=== PATIENT | female | born 1935 | race Caucasian/White ===

== ENCOUNTER 2016-11-25 12:28 | Outpatient (CLI) | payer MEDICARE, OTHER ==
--- NOTE | 2016-11-25 16:21 | MRI Report ---
MRI LUMBAR SPINE WITHOUT CONTRAST EXAM DATE: 11/25/2016. INDICATION: 81-year-old female with subtle weakness right lower extremity. Concern for neurogenic cla udication. Please assess. COMPARISON: None. TECHNIQUE: 1. T2 coronal. 2. Sagittal STIR, T1 and T2. 3. Axial T1 and T2. FINDINGS: Radiographs (08/26/2006) have been reviewed, confirming the presence of 5 mgs-rcm-imwpxqf, lumbar-typ e vertebrae. There is a levoconvex scoliosis with apex at the L3-L4 disk level. With the patient lying supine, the Ludwig angle measures about 18 degrees. Also demonstrated is mild left lateral listhesis of L4 on L5. In the sagittal plane there is some straightening of the lumbar alignment with very minimal lordosis. In addition, there is minimal stepwise retrolisthesis of L1 on L2, L2 on L3, L3 on L4, and L4 on L5. Alignment is otherwise unremarkable. There is concavity in superior endplate of L4 on the right, consistent with prominent, Schmorl node t ype deformity. This results in mild loss of height centrally, on the right at L4. There is mild conca vity of the superior endplate of L1, most prominent paracentrally to the right, consistent with the s equela of old healed superior endplate compression type fracture. The vertebral body heights are othe rwise relatively preserved. No evidence of recent (acute or subacute) lumbar spine compression fractu re. Degenerative changes are demonstrated in the disks at all levels from L2-L3 to L5-S1. There is minima l disk space narrowing at L2-L3. Lzoi-nx-mewcgipr disk space narrowing is seen at L3-L4, most promine nt paracentrally on the right. There is moderate to severe disk space narrowing at L4-L5, most promin ent paracentrally to the right. The disk space heights are otherwise relatively preserved. Minor, type I reactive marrow changes are identified in the vertebral endplates at L3-L4 and L4-L5. A few intraosseous hemangiomata are demonstrated. The marrow signal intensity is otherwise unremarkabl e. The conus terminates in an appropriate fashion above the L1-L2 disk level. There is no abnormal thick ening or lipomatous change of the filum. Axial Images: L2-L3: Circumferential disk bulge with small, superiorly directed, left posterolateral extrusion and a broad-based left intra-/extraforaminal extrusion. Degenerative facet arthrosis with minimal bony hy pertrophy. Mild to moderate redundancy of ligamenta flava. Circumferential mass effect on the thecal sac without significant-appearing spinal stenosis. Mild foraminal stenoses. L3-L4: Circumferential disk bulge. Broad-based, right posterolateral and intra-/extraforaminal extrus ion. Broad-based left intra-/extraforaminal extrusion. Degenerative facet arthrosis with at least mil d bony hypertrophy. Moderate redundancy of ligamenta flava. Circumferential thecal sac compression. T he subarticular zones are narrowed, right greater than left. However, no thu impingement of tatiana ing right L4 nerve root is demonstrated. No significant central zone spinal stenosis. Moderate right and mild left foraminal stenoses. The L3 nerve roots appear to exit noncompressed. L4-L5: Circumferential disk bulge. Broad-based left intra-/extraforaminal protrusion. Broad-based rig ht intra-/extraforaminal extrusion. Degenerative facet arthrosis with mild left and mild to moderate right facet hypertrophy. Moderate redundancy of ligamenta flava. The subarticular zones are narrowed bilaterally. No impingement of either traversing L5 nerve root is demonstrated. No significant centra l zone spinal stenosis. There is relatively severe right-sided foraminal stenosis. Perineural fat maryan rounding exiting right L4 nerve root is effaced. Mild left foraminal stenosis. L5-S1: Minor disk bulge. Broad-based left intra-/extraforaminal extrusion. Degenerative facet arthros is without significant bony hypertrophy. No spinal stenosis or right foraminal stenosis. There is rel atively severe left-sided foraminal narrowing. Perineural fat surrounding left L5 nerve root is effac ed in the medial aspect of the neural foramen. There may be mild compression of the nerve root in the foramen. There is mild fatty atrophy in the posterior paraspinal musculature. IMPRESSION: 1. Levoconvex lumbar scoliosis with multilevel degenerative disk and facet change as documented in de tail above. 2. There are significant-appearing foraminal stenoses on the right at L4-L5 and on the left at L5-S1. There certainly could be compromise of exiting right L4 and/or left L5 nerve roots. Recommend clinic al correlation for possible right L4 and/or left L5 radiculopathy. 3. No other high-grade stenosis is identified and no other potential neural impingement is demonstrat ed. Referring Provider Line: [phone] SITE ID: [id number]
== END 2016-11-25 12:29 | disposition home or self-care (01) ==
LOC: DI 12:28
PROVIDERS: ATTEND Internal Medicine
DX: M51.36 Other intervertebral disc degeneration, lumbar region (principal); M51.37 Other intervertebral disc degeneration, lumbosacral region; M41.86 Other forms of scoliosis, lumbar region; M51.26 Other intervertebral disc displacement, lumbar region
CPT/HCPCS: 72148

== ENCOUNTER 2017-09-07 17:58 | Outpatient (CLI) | payer MEDICARE, OTHER | END 2017-09-07 17:59 | disposition critical access hospital (66) | LOC: EMS 17:58 | PROVIDERS: ATTEND Surgery | DX: Z03.89 Encounter for observation for other suspected diseases and conditions ruled out (principal) | CPT/HCPCS: A0425; A0429 ==

== ENCOUNTER 2017-09-07 18:10 | Emergency (ER) | payer MEDICARE, OTHER ==
--- NOTE | 2017-09-07 19:23 | ED Physician Documentation ---
PD HPI SYNCOPE - Stated complaint Stated Complaint: GLF - Chief complaint Chief Complaint: Neuro - History obtained from History obtained from: Patient, EMS - History of Present Illness Witnessed: Unwitnessed Timing - onset: Today Duration: Minutes Preceding symptoms: Light headed, Generalized weakness (she got up from sitting and felt lightheaded and weak legs. Slumped down without fall per se. Called EMS as could not get up herslef. They stood her up and she felt lightheaded initially, so they brought her here for evaluation. Feeling okay enroute.). No : Headache, Vision changes, Chest pain, Abdominal pain Contributing factors: Decreased PO intake, Just stood up. No: Recent med change , Noxious stimulae Similar symptoms before: Has not had sx before Recently seen: Not recently seen Review of Systems Constitutional: denies: Fever, Chills Nose: denies: Rhinorrhea / runny nose, Congestion Throat: denies: Sore throat Cardiac: denies: Chest pain / pressure, Palpitations Respiratory: denies: Dyspnea, Cough GI: denies: Abdominal Pain, Nausea, Vomiting, Diarrhea : denies: Dysuria, Frequency Skin: denies: Rash, Lesions Neurologic: reports: Generalized weakness, Near syncope. 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 HEENT: Chronic hearing loss Psych: None Musculoskeletal: Osteoarthritis, Osteoporosis Derm: None - Past Surgical History Past Surgical History: Yes General: Cholecystectomy, Colonoscopy /RADIO REPAIR TEACHER: Hysterectomy HEENT: Tonsil/Adenoidectomy - Present Medications Home Medications: Ambulatory Orders Medication Instructions Recorded Confirmed Aspirin [Children's Aspirin] 81 mg PO DAILY 03/09/13 11/22/15 Levothyroxine Sodium [Synthroid] 75 mcg PO DAILY 03/09/13 11/22/15 Colestipol HCl [Colestid] 2 gm PO BID 11/22/15 11/26/15 Acetaminophen 500 mg PO QPM 11/26/15 11/26/15 Acetaminophen [Tylenol] 325 mg PO DAILY 11/26/15 11/26/15 Calcium Carbonate 1,250 mg PO DAILY 11/26/15 11/26/15 Cholecalciferol (Vitamin D3) 1,200 units PO DAILY 11/26/15 11/26/15 [D--Ujliana] - Allergies Allergies/Adverse Reactions: Allergies Allergy/AdvReac Type Severity Reaction Status Date / Time NSAIDS (Non-Steroidal Allergy Mild Anxiety Verified 09/07/17 19:12 Anti-Inflamma ranitidine HCl * Allergy Mild unknown Verified 09/07/17 19:12 [From Zantac] sertraline HCl * Allergy Mild unknown Verified 09/07/17 19:12 [From Zoloft] oxycodone Allergy Unknown Verified 09/07/17 19:12 Bngchxn-Wxv-Fsk Reductase AdvReac Mild Dizziness Verified 09/07/17 19:12 Inhibitor alendronate sodium AdvReac Dizziness Verified 09/07/17 19:12 [From Fosamax] - Social History Does the pt smoke?: No Smoking Status: Never smoker Does the pt drink ETOH?: Yes Does the pt have substance abuse?: No - Immunizations Immunizations are current?: Yes - POLST Patient has POLST: No PD ED PE NORMAL - Vitals Vital signs reviewed: Yes - General General: Alert and oriented X 3, No acute distress, Well developed/nourished - HEENT HEENT: Pharynx benign - Neck Neck: Supple, no meningeal sign, No adenopathy - Cardiac Cardiac: RRR, No murmur - Respiratory Respiratory: Clear bilaterally - Abdomen Abdomen: Normal bowel sounds, Soft, Non tender, Non distended - Back Back: No CVA TTP - Derm Derm: Normal color, Warm and dry, No rash - Extremities Extremities: No deformity, No tenderness to palpate, No edema, No calf tenderness / cord - Neuro Neuro: Alert and oriented X 3, No motor deficit, Normal speech Eye Opening: Spontaneous Motor: Obeys Commands Verbal: Oriented GCS Score: 15 Results - Vitals Vitals: Oxygen O2 Source Room air - Labs Labs: Laboratory Tests 09/07/17 09/07/17 20:09 20:09 WBC 6.4 RBC 4.50 Hgb 12.3 Hct 38.6 MCV 85.8 MCH 27.4 MCHC 31.9 L RDW 14.1 Plt Count 210 MPV 9.0 Neut # 4.2 Lymph # 1.3 L [place] # 0.7 Eos # 0.1 Baso # 0.0 Absolute Nucleated RBC 0.00 Nucleated RBC % 0.0 Sodium 137 Potassium 3.8 Chloride 103 Carbon Dioxide 27 Anion Gap 7.0 BUN 26 H Creatinine 1.0 Estimated GFR (MDRD) 53 L Glucose 104 H Calcium 8.9 Magnesium 2.3 Total Bilirubin 0.4 AST 19 ALT 14 Alkaline Phosphatase 52 Total Protein 7.2 Albumin 4.1 Globulin 3.1 Albumin/Globulin Ratio 1.3 Lipase 36 PD MEDICAL DECISION MAKING - ED course Complexity details: considered differential (normal basic labs. BP slightly elevated but I don't think the issue. No obvious infection. ), d/w patient Departure - Departure Disposition: 01 Home, Self Care Clinical Impression: General weakness Accidental fall Qualifiers: Encounter type: initial encounter Qualified Code(s): W19.XXXA - Unspecified fall, initial encounter Arm contusion Qualifiers: Encounter type: initial encounter Laterality: left Qualified Code(s): S40.022A - Contusion of left upper arm, initial encounter Condition: Stable Record reviewed to determine appropriate education?: Yes Follow-Up: Alvin Leyva MD [Primary Care Provider] - Comments: Adequate fluids. Tylenol if needed for pains. Your basic labs appear normal here. Your blood pressure has improved from what it was but is still slightly elevated. I do not think that is the main cause of your symptoms however. I do not know the cause of your feeling of leg weakness. See how it does over the next day or 2. Recheck if not improved in the next couple of days. Use your walker at home as needed to help support you. Follow-up with your primary care or return here if other symptoms develop such as cold or flu symptoms. Discharge Date/Time: 09/07/17 21:34
[2017-09-07] MEDS ORDERED: SODIUM CHLORIDE 0.9% 500 ML IV ONE (19:50)
[2017-09-07 20:14] LABS: BASOPHILS % (AUTO) 0.7 %; EOSINOPHILS # (AUTO) 0.1 10^3/uL (0.0-0.7); EOSINOPHILS % (AUTO) 1.4 %; HGB - HEMOGLOBIN 12.3 g/dL (12.0-16.0); LYMPHOCYTES # (AUTO) 1.3 10^3/uL (1.5-3.5); LYMPHOCYTES % (AUTO) 20.3 %; MEAN CORPUSCULAR HEMOGLOBIN 27.4 pg (27.0-31.0); MEAN CORPUSCULAR HGB CONC 31.9 g/dL (32.0-36.0); MEAN CORPUSCULAR VOLUME 85.8 fL (81.0-99.0); MONOCYTES # (AUTO) 0.7 10^3/uL (0.0-1.0); MONOCYTES % (AUTO) 11.6 %; NEUTROPHILS # (AUTO) 4.2 10^3/uL (1.5-6.6); PLT - PLATELET COUNT 210 10^3/uL (130-450); RED CELL DISTRIBUTION WIDTH 14.1 % (12.0-15.0); WHITE BLOOD COUNT 6.4 x10^3/uL (4.8-10.8)
[2017-09-07 20:25] LABS: ALBUMIN 4.1 g/dL (3.2-5.5); ALBUMIN/GLOBULIN RATIO 1.3 (1.0-2.2); BILIRUBIN,TOTAL 0.4 mg/dL (0.2-1.0); CALCIUM 8.9 mg/dL (8.5-10.3); MAGNESIUM 2.3 mg/dL (1.7-2.8); TOTAL PROTEIN 7.2 g/dL (6.7-8.2)
[2017-09-07 21:34] VITALS: BP 166/61
== END 2017-09-07 21:34 | disposition home or self-care (01) ==
LOC: EDUNIT# → ED 18:10
DX: R53.1 Weakness (principal); S40.022A Contusion of left upper arm, initial encounter; W18.30XA Fall on same level, unspecified, initial encounter; Z79.82 Long term (current) use of aspirin; E78.00 Pure hypercholesterolemia, unspecified; E03.9 Hypothyroidism, unspecified
CPT/HCPCS: 36415; 80053; 83690; 83735; 85025; 96360; 99283; 99284

== ENCOUNTER 2019-04-04 09:15 | Outpatient (CLI) | payer MEDICARE, OTHER ==
--- NOTE | 2019-04-04 15:39 | MRI Report ---
Reason: LOW BACK PAIN AT MULTIPLE SITES Procedure Date: 04/04/2019 Accession Number: [id number] / [id number] Procedure: MRI - Lumbar Spine W/O CPT Code: FULL RESULT: EXAM: MRI LUMBAR SPINE WITHOUT CONTRAST EXAM DATE: 04/04/2019 10:38 AM. CLINICAL HISTORY: Low back pain at multiple sites. COMPARISON: 11/25/2016 lumbar spine MRI. TECHNIQUE: Multiplanar, multisequence T1-weighted and fluid-sensitive sequences of the lumbar spine from T12 to S1 without contrast. Other: None. FINDINGS: Spinal Canal: The conus terminates at L1-L2. The conus medullaris and cauda equina are unremarkable. Alignment: 24 degrees levoscoliosis with apex at L4, measured from the superior endplate of L3 to the inferior endplate of L5. Grade 1 retrolisthesis L4 on L5 measures 2 mm. Bone Marrow: Five ota-qtc-pyxxjea lumbar vertebral bodies are assumed. No fractures. No osseous lesions. Severe right-sided intervertebral disk height loss at L3-L4 and L4-L5 with surrounding mixed Modic type I and II endplate degenerative changes. Disk Levels/Facets: T12-L1: Unremarkable. L1-L2: Unremarkable. L2-L3: Broad-based disk bulge asymmetric to the left foraminal and extraforaminal region and mild facet arthropathy results in mild central canal stenosis and left foraminal stenosis. Unchanged. Mild intervertebral disk height loss and disk desiccation. L3-L4: A broad-based disk bulge asymmetric to the right foraminal and extraforaminal region with moderate to severe bilateral facet arthropathy results in moderate central canal and right foraminal stenosis. Right foraminal stenosis is progressed, with disk material contacting the exiting right L3 nerve root. There are small bilateral facet effusions. L4-L5: Broad-based disk osteophyte complex and moderate facet arthropathy results in unchanged moderate central canal stenosis with progressive, now severe right and mild left foraminal stenosis. Disk material appears to contact and displace the exiting right L4 nerve root. L5-S1: A left foraminal disk protrusion and moderate left facet arthropathy results in severe left foraminal stenosis, with disk material contacting and displacing the exiting left L5 nerve root, progressed from the prior exam. No right foraminal or central canal stenosis. Musculature: Normal. No edema or fatty atrophy. Other: The partially visualized retroperitoneum is unremarkable. IMPRESSION: 1. At L5-S1, there is progressive, now severe left foraminal stenosis, with disk material impinging upon the exiting left L5 nerve root. 2. At L4-L5, severe right foraminal stenosis has progressed in the interval, with disk material impinging upon the exiting right L4 nerve root. Moderate central canal stenosis is unchanged. 3. At L3-L4, there has been interval progression of moderate central canal and right foraminal stenosis, with disk material impinging upon the extraforaminal right L3 nerve root. 4. Moderate lumbar levoscoliosis with severe right-sided intervertebral disk height loss at L3-L4 and L4-L5, progressed from the prior exam. Comment: The following findings are so common in adults without low back pain that while we report their presence, they must be interpreted with caution and in the context of the clinical situation. (Reference Mariank et al, Spine 2001) Prevalence of findings in patients without low back pain: Disk degeneration (any evidence): 92% Disk desiccation/T2 signal loss: 83% Disk height loss: 56% Disk bulge: 64% Disk protrusion: 32% Annular tear/high intensity zone: 38% RADIA
== END 2019-04-04 09:16 | disposition home or self-care (01) ==
LOC: DI 09:15
PROVIDERS: ATTEND Physical Medicine & Rehabilitation
DX: M48.061 Spinal stenosis, lumbar region without neurogenic claudication (principal); M51.27 Other intervertebral disc displacement, lumbosacral region; M41.86 Other forms of scoliosis, lumbar region
CPT/HCPCS: 72148

== ENCOUNTER 2020-02-02 02:56 | Outpatient (CLI) | payer MEDICARE, OTHER | END 2020-02-02 02:57 | disposition critical access hospital (66) | LOC: EMS 02:56 | PROVIDERS: ATTEND Surgery | DX: M54.5 Low back pain (principal); M54.2 Cervicalgia; W18.39XA Other fall on same level, initial encounter; Y92.003 Bedroom of unspecified non-institutional (private) residence as the place of occurrence of the external cause | CPT/HCPCS: A0425; A0429 ==

== ENCOUNTER 2020-08-23 15:32 | Outpatient (CLI) | payer MEDICARE, OTHER ==
--- NOTE | 2020-08-23 16:55 | DEXA Report ---
PROCEDURE: Dexa Spine and/or Hip INDICATIONS: OSTEOPENIA TECHNIQUE: Dual energy x-ray absorptiometry (DXA) was performed on a [employer]. Regions measur ed are the AP Spine, femoral neck, and if needed forearm. COMPARISON: 04/09/2017. FINDINGS: Lumbar Spine: Bone Mineral Density 1.450 g/cm/cm,T score 2.3, there is interval 8.6% increase in total lumbar sp ine bone mineral density. Right Hip: Bone Mineral Density 0.847 g/cm/cm,T score -1.3, there is interval 0.4% increase in total right hip bone mineral density. Right Femoral Neck: Bone Mineral Density 0.766 g/cm/cm, T score -2.0. (T score greater or equal to -1.0: NORMAL) (T score from -1.1 to -2.4: OSTEOPENIA) (T score less than or equal to -2.5 to: OSTEOPOROSIS) Impression: Osteopenia. Patients with diagnosis of osteoporosis or osteopenia should have regular bone mineral density assess ment. For those eligible for Medicare, routine testing is allowed once every 2 years. Testing frequ ency can be increased for patients who have rapidly progressing disease or for those who are receivin g medical therapy to restore bone mass. Reviewed by: Ravi Ruelas MD on 08/23/2020 4:53 PM PST Approved by: Ravi Ruelas MD on 08/23/2020 4:53 PM PST Station ID: [id number]
== END 2020-08-23 15:33 | disposition home or self-care (01) ==
LOC: DI 15:32
PROVIDERS: ATTEND Physician Assistant
DX: M85.89 Other specified disorders of bone density and structure, multiple sites (principal)

== ENCOUNTER 2020-12-22 12:32 | Outpatient (CLI) | payer MEDICARE, OTHER | END 2020-12-22 12:33 | disposition critical access hospital (66) | LOC: EMS 12:32 | DX: R53.1 Weakness (principal) | CPT/HCPCS: A0425; A0429 ==

== ENCOUNTER 2020-12-22 12:45 | Emergency (ER) | payer MEDICARE, OTHER ==
[2020-12-22] MEDS ORDERED: DEXAMETHASONE 10 MG/ML VIAL IVP STA (13:29)
--- NOTE | 2020-12-22 13:33 | ED Physician Documentation ---
History of Present Illness - Stated complaint Stated Complaint: UNABLE TO WALK - Chief complaint Chief Complaint: Neuro - History obtained from History obtained from: Patient - History of Present Illness Timing: Today Pain level max: 5 Pain level now: 0 - Additonal information Additional information: Patient is an 85-year-old female who presents to the emergency department stating that she has had difficulty walking today. She states she feels like her feet are in blocks of cement. She states she had back pain earlier but this is since resolved. She uses a walker normally to ambulate at home. Has a history of spinal stenosis. Had a steroid injection about 3 weeks ago at L4-L5. Has not had any numbness or tingling. No loss of bowel or bladder control. No fevers. No trauma. She states that she just feels weak. 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 : 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, Nocturia HEENT: Chronic hearing loss Psych: None Musculoskeletal: Other Derm: None - Past Surgical History Past Surgical History: Yes General: Cholecystectomy, 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: Hysterectomy HEENT: Tonsil/Adenoidectomy - Present Medications Home Medications: Ambulatory Orders Medication Instructions Recorded Confirmed Levothyroxine Sodium [Synthroid] 75 mcg PO DAILY 03/09/13 12/22/20 Calcium Carbonate 1,250 mg PO DAILY 11/26/15 12/22/20 Cholecalciferol (Vitamin D3) 1,200 units PO DAILY 11/26/15 12/22/20 [D--Juliana] Lovastatin 40 mg PO DAILY 12/22/20 12/22/20 Metoprolol Tartrate [Lopressor] 25 mg PO BID 12/22/20 12/22/20 Omeprazole [PriLOSEC] 20 mg PO DAILY 12/22/20 12/22/20 cephALEXin [Keflex] 500 mg PO Q6H #20 cap 12/22/20 predniSONE [Deltasone] 40 mg PO DAILY #10 tablet 12/22/20 - Allergies Allergies/Adverse Reactions: Allergies Allergy/AdvReac Type Severity Reaction Status Date / Time NSAIDS (Non-Steroidal Allergy Mild Anxiety Verified 12/22/20 12:54 Anti-Inflamma ranitidine HCl * Allergy Mild unknown Verified 12/22/20 12:54 [From Zantac] sertraline HCl * Allergy Mild unknown Verified 12/22/20 12:54 [From Zoloft] oxycodone Allergy Unknown Verified 12/22/20 12:54 Wqimsul-Tic-Xfb Reductase AdvReac Mild Dizziness Verified 12/22/20 12:54 Inhibitor alendronate sodium AdvReac Dizziness Verified 12/22/20 12:54 [From Fosamax] - Social History Does the pt smoke?: No Smoking Status: Never smoker Does the pt drink ETOH?: Yes Does the pt have substance abuse?: No - Immunizations Immunizations are current?: Yes - POLST Patient has POLST: No PD ED PE NORMAL - Vitals Vital signs reviewed: Yes - General General: Alert and oriented X 3, No acute distress - HEENT HEENT: Moist mucous membranes - Neck Neck: Supple, no meningeal sign - Cardiac Cardiac: RRR - Respiratory Respiratory: No respiratory distress, Clear bilaterally - Abdomen Abdomen: Soft, Non tender, Non distended - Back Back: No spinal TTP, Other (Normal bilateral lower extremity patellar and ankle jerk reflexes. Normal great toe extension bilaterally. 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 Able to elevate both legs easily off the bed. Neurovascular intact.) - Psych Psych: Normal mood, Normal affect Results - Vitals Vitals: Vital Signs - 24 hr 12/22/20 12/22/20 12/22/20 12:55 12:59 14:59 Temperature 37.0 C Heart Rate 57 L 57 L 64 Respiratory 14 11 L 13 Rate Blood Pressure 208/95 H 187/62 H 142/67 H O2 Saturation 94 95 95 12/22/20 16:00 Temperature Heart Rate 56 L Respiratory 15 Rate Blood Pressure 129/70 O2 Saturation 97 Oxygen O2 Source Room air - Labs Labs: Laboratory Tests 12/22/20 12/22/20 12/22/20 13:14 13:43 13:43 WBC 6.1 RBC 4.74 Hgb 13.6 Hct 42.2 MCV 89.0 MCH 28.7 MCHC 32.2 RDW 14.1 Plt Count 216 MPV 10.3 Neut # (Auto) 3.7 Lymph # (Auto) 1.3 L [place] # (Auto) 0.9 Eos # (Auto) 0.1 Baso # (Auto) 0.1 Absolute Nucleated RBC 0.00 Nucleated RBC % 0.0 ESR 20 Sodium Potassium Chloride Carbon Dioxide Anion Gap BUN Creatinine Estimated GFR (MDRD) Glucose Calcium Total Bilirubin AST ALT Alkaline Phosphatase C-Reactive Protein Total Protein Albumin Globulin Albumin/Globulin Ratio Urine Color LIGHT YELLOW Urine Clarity HAZY Urine pH 6.5 Ur Specific [place] 1.015 Urine Protein NEGATIVE Urine Glucose (UA) NEGATIVE Urine Ketones NEGATIVE Urine Occult Blood NEGATIVE Urine Nitrite NEGATIVE Urine Bilirubin NEGATIVE Urine Urobilinogen 0.2 (NORMAL) Ur Leukocyte Esterase TRACE H Urine RBC 0-5 Urine WBC 0-3 Ur Epithelial Cells RARE Transitional Ur Squamous Epith Cells RARE Squamous Urine Bacteria Moderate H Ur Microscopic Review INDICATED Urine Culture Comments INDICATED 12/22/20 13:43 WBC RBC Hgb Hct MCV MCH MCHC RDW Plt Count MPV Neut # (Auto) Lymph # (Auto) [place] # (Auto) Eos # (Auto) Baso # (Auto) Absolute Nucleated RBC Nucleated RBC % ESR Sodium 138 Potassium 4.5 Chloride 99 L Carbon Dioxide 30 Anion Gap 9.0 BUN 26 H Creatinine 1.2 H Estimated GFR (MDRD) 43 L Glucose 83 Calcium 10.1 Total Bilirubin 0.9 AST 21 ALT 20 Alkaline Phosphatase 56 C-Reactive Protein < 1.0 Total Protein 7.7 Albumin 4.0 Globulin 3.7 Albumin/Globulin Ratio 1.1 Urine Color Urine Clarity Urine pH Ur Specific [place] Urine Protein Urine Glucose (UA) Urine Ketones Urine Occult Blood Urine Nitrite Urine Bilirubin Urine Urobilinogen Ur Leukocyte Esterase Urine RBC Urine WBC Ur Epithelial Cells Ur Squamous Epith Cells Urine Bacteria Ur Microscopic Review Urine Culture Comments - Rads (name of study) L spine CT Radiology: Prelim report reviewed, EMP read contemporaneously, See rad report PD MEDICAL DECISION MAKING - ED course Complexity details: reviewed results, re-evaluated patient, considered differential (No cauda equina, no spinal epidural abscess, no fracture, no aortic dissection or evidence of aneursym rupture), d/w patient, d/w family ED course: Patient with moderate to severe central canal stenosis on L3-L5. No cauda equina here. no saddle anesthesia. Patient is actually able to ambulate well in the emergency department with a walker. We will treat her for UTI. We will place her on a short steroid course. We will have her follow-up with her spine surgeon for further care. Patient has an appointment in 3 days with her spine surgeon. She does normally use a walker at home. Patient and family counseled regarding signs and symptoms for which I believe and urgent re-evaluation would be necessary. Patient with good understanding of and agreement to plan and is comfortable going home at this time This document was made in part using voice recognition software. While efforts are made to proofread this document, sound alike and grammatical errors may occur. I did attempt to consult the patient's spine surgeon at [facility], but he is not on-call this weekend. The on-call orthopedist did not call back after repeated attempts. The patient and are comfortable going home at this time and she has an appointment later this week. They will return if she worsens. Departure - Departure Disposition: 01 Home, Self Care Clinical Impression: Central stenosis of spinal canal, Foraminal stenosis of lumbar region Urinary tract infection Qualifiers: Urinary tract infection type: acute cystitis Hematuria presence: without hematuria Qualified Code(s): N30.00 - Acute cystitis without hematuria Condition: Good Instructions: ED Neck Back Pain General, ED UTI Cystitis Female Follow-Up: MARY DELGADO MD [Physician No Access] - 12/26/20 Prescriptions: predniSONE [Deltasone] 40 mg PO DAILY #10 tablet cephALEXin [Keflex] 500 mg PO Q6H #20 cap Comments: Take all steroids and antibiotics until gone. Follow-up with your spine surgeon later this week for further care. Return if you worsen. This should continue to improve over the next few days.
[2020-12-22] MEDS ORDERED: IOVERSOL 320 100 ML VIAL IVP ONE ×2 (13:36→15:14)
[2020-12-22 13:54] LABS: BASOPHILS # (AUTO) 0.1 10^3/uL (0.0-0.1); BASOPHILS % (AUTO) 0.8 %; EOSINOPHILS # (AUTO) 0.1 10^3/uL (0.0-0.7); HCT - HEMATOCRIT 42.2 % (37.0-47.0); HGB - HEMOGLOBIN 13.6 g/dL (12.0-16.0); LYMPHOCYTES # (AUTO) 1.3 10^3/uL (1.5-3.5); LYMPHOCYTES % (AUTO) 21.4 %; MEAN CORPUSCULAR HEMOGLOBIN 28.7 pg (27.0-31.0); MEAN CORPUSCULAR HGB CONC 32.2 g/dL (32.0-36.0); MEAN PLATELET VOLUME 10.3 fL (7.9-10.8); MONOCYTES # (AUTO) 0.9 10^3/uL (0.0-1.0); MONOCYTES % (AUTO) 14.4 %; NEUTROPHILS # (AUTO) 3.7 10^3/uL (1.5-6.6); NEUTROPHILS % (AUTO) 61.2 %; PLT - PLATELET COUNT 216 10^3/uL (130-450); RED BLOOD COUNT 4.74 10^6/uL (4.20-5.40); RED CELL DISTRIBUTION WIDTH 14.1 % (12.0-15.0); WHITE BLOOD COUNT 6.1 x10^3/uL (4.8-10.8)
[2020-12-22 14:01] LABS: BILIRUBIN,URINE NEGATIVE (NEGATIVE); GLUCOSE, URINE (UA) NEGATIVE (NEGATIVE); KETONES,URINE (UA) NEGATIVE (NEGATIVE); LEUKOCYTE ESTERASE, URINE TRACE (NEGATIVE); NITRITE,URINE NEGATIVE (NEGATIVE); OCCULT BLOOD,URINE NEGATIVE (NEGATIVE); PH,URINE 6.5 PH (5.0-7.5); PROTEIN,URINE NEGATIVE (NEGATIVE); UROBILINOGEN,URINE 0.2 (NORMAL) E.U./dL (NORMAL)
[2020-12-22 14:02] LABS: CLARITY,URINE HAZY (CLEAR)
[2020-12-22 14:09] LABS: BACTERIA,URINE Moderate /HPF (None Seen); EPITHELIAL CELLS,UR RARE Transitional /HPF (<= Few); RBC,URINE 0-5 /HPF (0-5); SQUAMOUS EPITHELIAL CELL,UR RARE Squamous (<= Few); WBC,URINE 0-3 /HPF (0-5)
[2020-12-22 14:13] LABS: ALBUMIN/GLOBULIN RATIO 1.1 (1.0-2.2); ALKALINE PHOSPHATASE 56 IU/L (42-121); ALT ALANINE AMINOTRANSFERASE 20 IU/L (10-60); AST ASPARTATE AMINOTRANSFERASE 21 IU/L (10-42); BILIRUBIN,TOTAL 0.9 mg/dL (0.2-1.0); BUN - BLOOD UREA NITROGEN 26 mg/dL (6-20); CALCIUM 10.1 mg/dL (8.5-10.3); CARBON DIOXIDE - CO2 30 mmol/L (21-32); CHLORIDE 99 mmol/L (101-111); CREATININE 1.2 mg/dL (0.4-1.0); GFR - MDRD 43 (>89); GLUCOSE 83 mg/dL (70-100); POTASSIUM 4.5 mmol/L (3.5-5.0); SODIUM 138 mmol/L (135-145); TOTAL PROTEIN 7.7 g/dL (6.7-8.2)
[2020-12-22 14:15] LABS: CRP - C-REACTIVE PROTEIN < 1.0 mg/dL (0-1.0)
[2020-12-22] MEDS ORDERED: SODIUM CHLORIDE 0.9% 1,000 ML IV STA (14:18)
[2020-12-22] MEDS ORDERED: cefTRIAXone 1 GM VIAL IVP STA (14:18)
--- NOTE | 2020-12-22 15:17 | CT Report ---
PROCEDURE: LUMBAR SPINE W INDICATIONS: low back pain, weakness, recent steroid injection CONTRAST: IV CONTRAST: Optiray 320 ml: 100 PO CONTRAST: *NO PO CONTRAST TECHNIQUE: After the administration of intravenous Isovue contrast, 3 mm thick sections acquired from the T12 le frances to the sacrum. Sagittal and coronal reformats were constructed. For radiation dose reduction, t he following was used: automated exposure control, adjustment of mA and/or kV according to patient s ize. COMPARISON: Correlation is made with prior lumbar plain films, 02/02/2020 and with prior lumbar MRI, 04/04/2019 FINDINGS: Image quality: Excellent. Bones: There is moderate levoconvex scoliosis. No acute vertebral body compression fractures. No carpenter spicious lytic or blastic bony lesions. Central spinal caliber is of normal overall caliber. No par s defects. T12-L1: Normal in appearance. L1-L2: Normal in appearance. L2-L3: The disc height is well-preserved. Vacuum disc phenomenon is seen at this level. Moderate disc bulge is seen, which is eccentric to the left. There is a central disc protrusion. There is mil d facet hypertrophy seen. There is moderate left-sided and no right-sided neuroforaminal narrowing se en. Moderate central canal narrowing is seen. L3-L4: At least moderate loss of disc height is seen on the right side. Vacuum disc phenomenon is seen at this level. Endplate irregularity and sclerosis are seen. At least moderate disc bulge is se en. Mild facet hypertrophy is seen. There is moderate left-sided and moderate to severe right-sided neuroforaminal narrowing seen. Moderate to severe central canal narrowing is seen at this level. L4-L5: Moderate to severe loss of disc height is seen. Vacuum disc phenomenon is seen at this leve l. Endplate irregularity and sclerosis can be seen. Moderate disc bulge is seen, which is eccentri c to the right. There is a central disc protrusion. There is moderate facet hypertrophy seen. Moderat e to serve bilateral neuroforaminal narrowing can be seen, right worse than left. Moderate to severe central canal narrowing is seen. L5-S1: Moderate to severe loss of disc height is seen on the left side. Vacuum disc phenomenon is seen at this level. Endplate irregularity and sclerosis are seen, which is more prominent on the lef t side. Moderate facet hypertrophy is seen. There is moderate to severe left-sided and no significa nt right-sided neuroforaminal narrowing seen. No significant central canal narrowing is seen. Soft tissues: No retroperitoneal masses or hematomas. Visualized aorta is normal in caliber. Ather osclerotic calcification is seen. Cholecystectomy clips are seen. IMPRESSION: No focal, acute abnormality can be seen. No abnormal enhancement can be seen. Multiple levels of lumbar spine degenerative change are seen, which are worst at the L4-L5 level. Moderate levoconvex scoliosis is seen. If it would be helpful for clinical management decision making, please consider a dedicated follow-up lumbar spine MRI (without and with contrast) for further evaluation, when clinically feasible (assu pavan that there is no contraindication). Reviewed by: Nash Adrian MD on 12/22/2020 2:16 PM SHERLY Approved by: Nash Adrian MD on 12/22/2020 2:16 PM SHERLY Station ID: [id number]
[2020-12-22 16:16] VITALS: BP 129/70
== END 2020-12-22 17:11 | disposition home or self-care (01) ==
LOC: EDUNIT# → ED 12:45
DX: M48.061 Spinal stenosis, lumbar region without neurogenic claudication (principal); M51.26 Other intervertebral disc displacement, lumbar region; N30.00 Acute cystitis without hematuria
CPT/HCPCS: 36415; 72132; 80053; 81001; 85025; 85651; 86140; 87086; 96361; 96374; 96375; 99284; Q9967; 81003

== ENCOUNTER 2020-12-23 08:35 | Outpatient (CLI) | payer MEDICARE, OTHER | END 2020-12-23 08:36 | disposition critical access hospital (66) | LOC: EMS 08:35 | DX: M54.5 Low back pain (principal); R46.4 Slowness and poor responsiveness | CPT/HCPCS: A0425; A0429 ==

== ENCOUNTER 2020-12-23 08:46 | Inpatient (IN) | payer MEDICARE, OTHER ==
[2020-12-23] MEDS ORDERED: cephALEXin 250 MG CAPSULE PO STA (09:03)
[2020-12-23] MEDS ORDERED: SODIUM CHLORIDE 0.9% 1,000 ML IV STA (09:05)
--- NOTE | 2020-12-23 09:12 | ED Physician Documentation ---
History of Present Illness - Stated complaint Stated Complaint: GLF - Chief complaint Chief Complaint: Neuro - History obtained from History obtained from: Patient, EMS - Additonal information Additional information: Patient is brought to the emergency department by EMS for mainly altered mental status that started this morning. They state that the patient was seen here the emergency department for back pain yesterday and that when they brought her in then, she seemed quite alert. Medics are not sure if the patient has been on any pain medication, but as far as they can gather, she was normal yesterday evening when he has been helped her to bed. This morning, the medics state that has been found the patient sitting next to her bed and seeming very slow and confused and dazed. The reported to the medics that the patient had improved since he first found her. The patient does not remember how she got onto the floor next to her bed, but states she does not hurt anywhere, other than her ongoing low back pain. She denies any focal weakness. No nausea or vomiting. No headache. The patient does not feel that she is thinking slowly or confused. Patient according to records was seen here yesterday and discharged with prescriptions for prednisone and Keflex after being diagnosed with, in addition to her spinal pain, acute cystitis. A lumbar CT did not show an emergent cause of back pain. No narcotics appear to have been prescribed. Review of Systems Ten Systems: 10 systems reviewed and negative Constitutional: reports: Reviewed and negative Eyes: reports: Reviewed and negative Ears: reports: Reviewed and negative Nose: reports: Reviewed and negative Throat: reports: Reviewed and negative Cardiac: reports: Reviewed and negative Respiratory: reports: Reviewed and negative GI: reports: Reviewed and negative : reports: Reviewed and negative Skin: reports: Reviewed and negative Musculoskeletal: reports: Reviewed and negative Neurologic: reports: Reviewed and negative Psychiatric: reports: Reviewed and negative Endocrine: reports: Reviewed and negative Immunocompromised: reports: Reviewed and negative PD PAST MEDICAL HISTORY - Past Medical History Cardiovascular: High cholesterol Endocrine/Autoimmune: HyPOthyroidism GI: GERD 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 : 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, Nocturia HEENT: Chronic hearing loss Psych: None Musculoskeletal: Other Derm: None - Past Surgical History Past Surgical History: Yes General: Cholecystectomy, Colonoscopy /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: Hysterectomy HEENT: Tonsil/Adenoidectomy - Present Medications Home Medications: Ambulatory Orders Medication Instructions Recorded Confirmed Levothyroxine Sodium [Synthroid] 75 mcg PO QDAC 09/26/13 07/12/21 Calcium Carbonate 1,250 mg PO DAILY 11/26/15 12/22/20 Cholecalciferol (Vitamin D3) 1,200 units PO DAILY 11/26/15 12/22/20 [D--Juliana] Lovastatin 40 mg PO QPM 12/22/20 12/23/20 Metoprolol Tartrate [Lopressor] 25 mg PO BID 12/22/20 12/23/20 Omeprazole [PriLOSEC] 20 mg PO DAILY 12/22/20 12/22/20 cephALEXin [Keflex] 500 mg PO Q6H #20 cap 12/22/20 predniSONE [Deltasone] 40 mg PO DAILY #10 tablet 12/22/20 - Allergies Allergies/Adverse Reactions: Allergies Allergy/AdvReac Type Severity Reaction Status Date / Time NSAIDS (Non-Steroidal Allergy Mild Anxiety Verified 12/23/20 09:01 Anti-Inflamma ranitidine HCl * Allergy Mild unknown Verified 12/23/20 09:01 [From Zantac] sertraline HCl * Allergy Mild unknown Verified 12/23/20 09:01 [From Zoloft] oxycodone Allergy Unknown Verified 12/23/20 09:01 [id number]-Mth-Zns Reductase AdvReac Mild Dizziness Verified 12/23/20 09:01 Inhibitor alendronate sodium AdvReac Dizziness Verified 12/23/20 09:01 [From Fosamax] - Social History Does the pt smoke?: No Smoking Status: Never smoker Does the pt drink ETOH?: Yes Does the pt have substance abuse?: No - Immunizations Immunizations are current?: Yes - POLST Patient has POLST: No PD ED PE NORMAL - Vitals Vital signs reviewed: Yes - General General: No acute distress, Other (Alert and answers questions properly, though she is somewhat slowed in responses. 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, No motor deficit, No sensory deficit, Normal speech, Other (The patient answers questions appropriately and is oriented but seems very slowed in her responses and thinking.No focal deficits otherwise.) - Psych Psych: Normal mood, Normal affect Results - Vitals Vitals: Vital Signs - 24 hr 12/23/20 12/23/20 12/23/20 08:49 09:01 10:00 Temperature 36.7 C Heart Rate 54 L 55 L 71 Respiratory 12 11 L 13 Rate Blood Pressure 140/54 H 134/64 H 148/52 H O2 Saturation 98 98 100 Oxygen O2 Source Room air - Labs Labs: Laboratory Tests 12/23/20 12/23/20 12/23/20 09:15 09:15 09:15 WBC 9.7 RBC 4.45 Hgb 13.1 Hct 39.4 MCV 88.5 MCH 29.4 MCHC 33.2 RDW 14.4 Plt Count 201 MPV 10.9 H Neut # (Auto) 8.4 H Lymph # (Auto) 0.9 L Dunn # (Auto) 0.4 Eos # (Auto) 0.0 Baso # (Auto) 0.0 Absolute Nucleated RBC 0.00 Nucleated RBC % 0.0 Sodium 137 Potassium 4.9 Chloride 102 Carbon Dioxide 25 Anion Gap 10.0 BUN 40 H Creatinine 1.3 H Estimated GFR (MDRD) 39 L Glucose 135 H Calcium 9.7 Total Bilirubin 0.9 AST 23 ALT 17 Alkaline Phosphatase 50 Total Protein 7.1 Albumin 3.6 Globulin 3.5 Albumin/Globulin Ratio 1.0 Lipase 29 TSH 0.96 PD MEDICAL DECISION MAKING - ED course Complexity details: reviewed old records, reviewed results, re-evaluated patient, considered differential, d/w patient ED course: The patient did not have any focal deficits but did seem somewhat "dazed". Since this is not her baseline, I ordered labs and head CT to further evaluate. Patient was also given a liter of 0.9 normal saline. The patient was found to have a cerebral contusion on CT scan. I spoke with Dr. Gray at [facility], who is on-call for neurosurgery, and he stated that this was an extremely small bleed and very low risk. He felt that the patient could easily be observed here and that there would be no chance of need for neurosurgical intervention for anything related to the patient's bleed. He was able to view the CT images himself. I spoke with Dr. Talbot here at [facility] and he was agreeable to admitting the patient for observation. Departure - Departure Disposition: 66 [facility] DC/Xfer Clinical Impression: Altered mental status Qualifiers: Altered mental status type: unspecified Qualified Code(s): R41.82 - Altered mental status, unspecified Cerebral contusion Qualifiers: Encounter type: initial encounter Laterality: right Loss of consciousness presence/duration: with LOC of unspecified duration Qualified Code(s): S06.319A - Contusion and laceration of right cerebrum with loss of consciousness of unspecified duration, initial encounter Discharge Date/Time: 12/23/20 11:51
[2020-12-23 09:24] LABS: BASOPHILS % (AUTO) 0.2 %; HCT - HEMATOCRIT 39.4 % (37.0-47.0); HGB - HEMOGLOBIN 13.1 g/dL (12.0-16.0); LYMPHOCYTES # (AUTO) 0.9 10^3/uL (1.5-3.5); LYMPHOCYTES % (AUTO) 8.7 %; MEAN CORPUSCULAR HEMOGLOBIN 29.4 pg (27.0-31.0); MEAN CORPUSCULAR HGB CONC 33.2 g/dL (32.0-36.0); MEAN CORPUSCULAR VOLUME 88.5 fL (81.0-99.0); MEAN PLATELET VOLUME 10.9 fL (7.9-10.8); MONOCYTES # (AUTO) 0.4 10^3/uL (0.0-1.0); NEUTROPHILS # (AUTO) 8.4 10^3/uL (1.5-6.6); NEUTROPHILS % (AUTO) 86.7 %; PLT - PLATELET COUNT 201 10^3/uL (130-450); RED BLOOD COUNT 4.45 10^6/uL (4.20-5.40); RED CELL DISTRIBUTION WIDTH 14.4 % (12.0-15.0); WHITE BLOOD COUNT 9.7 x10^3/uL (4.8-10.8)
--- NOTE | 2020-12-23 09:52 | CT Report ---
PROCEDURE: HEAD WO INDICATIONS: ALOC TECHNIQUE: Noncontrast 4.5 mm thick angled axial sections acquired from the foramen magnum to the vertex. For r adiation dose reduction, the following was used: automated exposure control, adjustment of mA and/or kV according to patient size. COMPARISON: None. FINDINGS: Image quality: Excellent. CSF spaces: Basal cisterns are patent. No extra-axial fluid collections. Diffuse prominence of the ventricles which could be due to central volume loss versus normal pressure hydrocephalus. Brain: Trace right parietal-occipital subarachnoid hemorrhage. Hypodensity with central curvilinear hyperdense noted in the right occipital lobe compatible with small parenchymal hemorrhagic contusion. No midline shift. No intracranial masses . Davis-white matter interface is normal. Skull and face: Calvarium and visualized facial bones are intact, without suspicious lesions. Sinuses: Visualized sinuses and mastoids are clear. IMPRESSION: 1. Trace right parietal-occipital subarachnoid hemorrhage. 2. Small right occipital hemorrhagic contusion. 3. No fracture. 4. Ventriculomegaly which could be due to central volume loss versus normal pressure hydrocephalus. Findings telephoned to Dr. Wilkins on 12/23/2020 at 0956 hours. Reviewed by: Glenda Beltran MD, PhD on 12/23/2020 9:51 AM PDT Approved by: Glenda Beltran MD, PhD on 12/23/2020 9:51 AM PDT Station ID: [id number]
[2020-12-23 10:00] LABS: ALBUMIN 3.6 g/dL (3.2-5.5); BILIRUBIN,TOTAL 0.9 mg/dL (0.2-1.0); CALCIUM 9.7 mg/dL (8.5-10.3); CREATININE 1.3 mg/dL (0.4-1.0); POTASSIUM 4.9 mmol/L (3.5-5.0); TOTAL PROTEIN 7.1 g/dL (6.7-8.2)
[2020-12-23] MEDS ORDERED: SODIUM CHLORIDE FLUSH 0.9% 10 ML SYRINGE IVP PRN (11:10)
[2020-12-23] MEDS ORDERED: ONDANSETRON 4 MG/2 ML VIAL IVP PRN (11:10)
--- NOTE | 2020-12-23 11:22 | HISTORY & PHYSICAL EXAMINATION ---
Chief Complaint - Chief Complaint Chief Complaint: Confusion History of Present Illness - Admitted From Admitted From:: Home - History Obtained From Records Reviewed: Yes History obtained from: Patient, Spouse, ER Physician - History of Present Illness HPI Comment/Other: This is a 85-year-old female with a past medical history significant for hypert ension, GERD, hypothyroidism who presents today after she was found on the ground by her and there was concern for confusion at that time. The patient tells me she cannot recall what happened yesterday. She was not sure why she is on the ground. She does not believe she hit her head but she does feel like her neck is bothering her a little bit. She reports right-sided neck pain that is worse with movement. There is no pain with palpation. She denies any upper or lower extremity weakness. She states she was in the emergency department yesterday due to difficulty walking, and complaining of back pain. She was diagnosed with a urinary tract infection and discharged on Keflex. She was also given prednisone for her back pain. She states she feels better today from walking perspective. She been able to ambulate without difficulty. She normally uses a walker at baseline. She currently feels like she is at her baseline and her who is at bedside confirms this. She knows to the hospital and why she is here. She knows the year, month, and day of the week. She reports no fevers but does report occasional chills. She denies any dysuria, urgency, hematuria. The emergency department, she underwent a CT of the head which showed a trace right parietaloccipital subarachnoid hemorrhage and small right occipital hemorrhagic contusion. This finding was discussed with neurosurgery at [place] who felt that no surgical intervention was warranted and they felt t hat this would also not explain her confusion that was present given it is started tiny hemorrhage. They also do not feel that repeating imaging would be worthwhile as well given how small the hemorrhage is. Given her initial confusion, medicine was asked to place the patient in observation overnight. I did discuss goals of care with the patient and she would like to be a full code. 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 Living arrangement: At home Living Situation: With spouse/s.o. Social History Notes: She lives at home with her . She denies smoking. She will have an occasional glass of white wine. - POLST Patient has POLST: No Meds/Allgy - Home Medications Home Medications: Ambulatory Orders Medication Instructions Recorded Confirmed Levothyroxine Sodium [Synthroid] 75 mcg PO DAILY 03/09/13 12/22/20 Calcium Carbonate 1,250 mg PO DAILY 11/26/15 12/22/20 Cholecalciferol (Vitamin D3) 1,200 units PO DAILY 11/26/15 12/22/20 [D--Juliana] Lovastatin 40 mg PO DAILY 12/22/20 12/22/20 Metoprolol Tartrate [Lopressor] 25 mg PO BID 12/22/20 12/22/20 Omeprazole [PriLOSEC] 20 mg PO DAILY 12/22/20 12/22/20 cephALEXin [Keflex] 500 mg PO Q6H #20 cap 12/22/20 predniSONE [Deltasone] 40 mg PO DAILY #10 tablet 12/22/20 - Allergies Allergies/Adverse Reactions: Allergies Allergy/AdvReac Type Severity Reaction Status Date / Time NSAIDS (Non-Steroidal Allergy Mild Anxiety Verified 12/23/20 09:01 Anti-Inflamma ranitidine HCl * Allergy Mild unknown Verified 12/23/20 09:01 [From Zantac] sertraline HCl * Allergy Mild unknown Verified 12/23/20 09:01 [From Zoloft] oxycodone Allergy Unknown Verified 12/23/20 09:01 Bqamrxx-Oow-Fgj Reductase AdvReac Mild Dizziness Verified 12/23/20 09:01 Inhibitor alendronate sodium AdvReac Dizziness Verified 12/23/20 09:01 [From Fosamax] Review of Systems - Constitutional Constitutional: reports: Chills. denies: Fever - Eyes Eyes: denies: Vision loss - Cardiovascular Cariovascular: denies: Chest pain, Edema, Syncope, Exertional dyspnea, Decr. exercise tolerance - Respiratory Respiratory: denies: SOB at rest, SOB with exertion - Gastrointestinal Gastrointestinal: denies: Abdominal pain, Nausea, Vomiting - Genitourinary Genitourinary: denies: Dysuria, Frequency, Urgency, Hematuria - Musculoskeletal Musculoskeletal: reports: Back pain. denies: Limited range of motion, Muscle weakness - Integumentary Integumentary: denies: Rash - Neurological Neurological: reports: Numbness (Right leg). denies: General weakness, Focal weakness, Dizziness - All Other Systems All Other Systems: reports: Reviewed and negative Prior Level of Functionality: She ambulates with a walker at baseline. Exam - Vital Signs Reviewed Vital Signs: Yes Vital Signs: Vital Signs x48h Temp Pulse Resp BP Pulse Ox 12/23/20 10:00 71 13 148/52 H 100 12/23/20 09:01 55 L 11 L 134/64 H 98 12/23/20 08:49 36.7 C 54 L 12 140/54 H 98 - Physical Exam General Appearance: positive: No acute distress, Alert Eyes Bilateral: positive: Normal inspection, Conjunctivae nml ENT: positive: Dry mucous membranes. negative: No signs of dehydration Neck: positive: Nml inspection Respiratory: positive: No respiratory distress Cardiovascular: negative: Irregularly irregular, Tachycardia, Systolic murmur Abdomen: positive: Non-tender, No distention. negative: Tenderness Back: positive: Other (Mild cervical paraspinal tenderness. No cervical tenderness.) Skin: positive: Warm, Dry Extremities: positive: Full ROM, No pedal edema Neurologic/Psychiatric: positive: Motor nml, Sensation nml. negative: Disoriented to person, Disoriented to place, Disoriented to time, Facial droop, Slurred/abnml speech Conclusion/Plan - Problem List (1) Altered mental status Conclusion/Plan: It appears that she was confused early this morning but she is not back to her baseline. CT did reveal a small subarachnoid hemorrhage and contusion. This was reviewed with neurosurgery at [place] although this would not explain her confusion. She was diagnosed with a UTI yesterday but she is into the medic and I do not believe that she actually does have an infection. I also do not think it would explain her confusion given the lack of systemic evidence of infection. She was not prescribed any opiates or muscle relaxants that may potentially cause confusion. I do not have a clear clear explanation for what happened but fortunately, she does appear back to her baseline. There has been no evidence of stroke based off of exam. We will observe her overnight. We will check an ammonia level although low suspicion this will be elevated. If she remains at her baseline then we will look to discharge her tomorrow. We will limit sedatives. Qualifiers: Altered mental status type: unspecified Qualified Code(s): R41.82 - Altered mental status, unspecified (2) Cerebral contusion Conclusion/Plan: This was evident on CT with concern for a small subarachnoid hemorrhage. This was reviewed by the emergency department physician with neurosurgery at [place] who felt that this would not explain her presentation and that there was no need for transfer. They also felt that repeating a CT would not be warranted. She is not on any antiplatelets or anticoagulation. We will observe the patient overnight and if there is any evidence of decline in her cognitive status then we will repeat a CT. Qualifiers: Encounter type: initial encounter Laterality: right Loss of consciousness presence/duration: with LOC of unspecified duration Qualified Code(s): S06.319A - Contusion and laceration of right cerebrum with loss of consciousness of unspecified duration, initial encounter (3) Foraminal stenosis of lumbar region Conclusion/Plan: She was seen in the emergency department yesterday for this and prescribed prednisone. She was asked to follow-up with her spine surgeon at [facility]. We will continue the prednisone for a few more days as initially prescribed given she has had improvement in this. She will need outpatient follow-up with her spine surgeon once discharged. (4) Asymptomatic bacteriuria Conclusion/Plan: Her urinalysis yesterday did reveal bacteriuria and trace leukocyte Estrace but no evidence of pyuria or nitrites. Given she is asymptomatic, we will hold off on treating this unless there is evidence of infection which may include an elevated white count, fever, or symptoms of urinary tract infection. (5) Hypothyroidism Conclusion/Plan: Her TSH is within normal limits. We will continue her home Synthroid. - Lab Results Lab results reviewed: Yes Fish Bones: 12/23/20 09:15 12/23/20 09:15 - Diagnostic Imaging Results Diagnostic Imaging Results: positive: Final report reviewed Core Measures - Anticipated LOS I expect patient to be DC'd or transferred within 96 hours.: Yes - Issues Hospital Issues and Management Plan: 85-year-old female presented to being confused at home but not back to her baseline status. CT shows a small subarachnoid hemorrhage. We will observe her overnight and consider repeat imaging depending on her cognitive status. - DVT/VTE - Prophylaxis VTE/DVT Device ordered at admit?: Yes VTE/DVT Prophylaxis med ordered at admit?: No
[2020-12-23 12:19] LABS: B. PARAPERTUSSIS- RESP PCR PAN NOT DETECTED; B. PERTUSSIS- RESP PCR PANEL NOT DETECTED; C. PNEUMONIAE- RESP PCR PANEL NOT DETECTED; CORONAVIRUS 229E-RESP PCR NOT DETECTED; CORONAVIRUS HKU1-RESP PCR NOT DETECTED; CORONAVIRUS NL63-RESP PCR NOT DETECTED; CORONAVIRUS OC43-RESP PCR NOT DETECTED; HUMAN METAPNEUMOVIRUS NOT DETECTED; INFLUENZA A- RESP PCR PANEL NOT DETECTED; INFLUENZA B - RESP PCR PANEL NOT DETECTED; M. PNEUMONIAE- RESP PCR PANEL NOT DETECTED; PARAINFLUENZA VIRUS 1 NOT DETECTED; PARAINFLUENZA VIRUS 2 NOT DETECTED; PARAINFLUENZA VIRUS 3 NOT DETECTED; PARAINFLUENZA VIRUS 4 NOT DETECTED; RHINOVIRUS/ENTEROVIRUS NOT DETECTED; RSV- RESP PCR PANEL NOT DETECTED; SARS-CoV-2 -RESP PCR PANEL NOT DETECTED
[2020-12-23] MEDS: LACTATED RINGERS 1,000 ML IV SCH ×2 (12:32→21:59)
[2020-12-23] MEDS: SODIUM CHLORIDE FLUSH 0.9% 10 ML SYRINGE IVP SCH (16:54)
[2020-12-23] MEDS: ACETAMINOPHEN 325 MG TABLET PO PRN (21:58)
[2020-12-24] MEDS: SODIUM CHLORIDE FLUSH 0.9% 10 ML SYRINGE IVP SCH ×3 (00:08→17:30)
[2020-12-24 05:31] LABS: BASOPHILS % (AUTO) 0.2 %; EOSINOPHILS % (AUTO) 0.2 %; HCT - HEMATOCRIT 38.1 % (37.0-47.0); HGB - HEMOGLOBIN 12.1 g/dL (12.0-16.0); LYMPHOCYTES # (AUTO) 1.7 10^3/uL (1.5-3.5); LYMPHOCYTES % (AUTO) 13.5 %; MEAN CORPUSCULAR HEMOGLOBIN 28.4 pg (27.0-31.0); MEAN CORPUSCULAR HGB CONC 31.8 g/dL (32.0-36.0); MEAN CORPUSCULAR VOLUME 89.4 fL (81.0-99.0); MEAN PLATELET VOLUME 11.1 fL (7.9-10.8); MONOCYTES # (AUTO) 1.3 10^3/uL (0.0-1.0); MONOCYTES % (AUTO) 10.2 %; NEUTROPHILS # (AUTO) 9.5 10^3/uL (1.5-6.6); NEUTROPHILS % (AUTO) 75.5 %; PLT - PLATELET COUNT 172 10^3/uL (130-450); RED BLOOD COUNT 4.26 10^6/uL (4.20-5.40); RED CELL DISTRIBUTION WIDTH 14.6 % (12.0-15.0); WHITE BLOOD COUNT 12.6 x10^3/uL (4.8-10.8)
[2020-12-24 05:47] LABS: CALCIUM 8.6 mg/dL (8.5-10.3); CREATININE 1.1 mg/dL (0.4-1.0); MAGNESIUM 2.1 mg/dL (1.7-2.8); POTASSIUM 4.3 mmol/L (3.5-5.0)
[2020-12-24] MEDS ORDERED: METOPROLOL TARTRATE 25 MG TABLET PO SCH (09:00)
[2020-12-24] MEDS: cefTRIAXone 1 GM in SODIUM CHLORIDE 0.9% MINIBAG 100 ML IV SCH (09:40)
[2020-12-24] MEDS: LEVOTHYROXINE 75 MCG TABLET PO SCH (09:52)
[2020-12-24] MEDS: METOPROLOL TARTRATE 25 MG TABLET PO SCH (09:56)
[2020-12-24] MEDS ORDERED: amLODIPine 5 MG TABLET PO SCH (12:00)
[2020-12-24] MEDS: ACETAMINOPHEN 325 MG TABLET PO PRN (16:00)
--- NOTE | 2020-12-24 16:05 | PROVIDER PROGRESS NOTE ---
Assessment/Plan - Problem List (1) Altered mental status Qualifiers: Altered mental status type: unspecified Qualified Code(s): R41.82 - Altered mental status, unspecified Assessment/Plan: pt is alert and oriented on today as her baseline. CT on yesterday did reveal a small subarachnoid hemorrhage and contusion, Ventriculomegaly which could be due to central volume loss versus normal pressure hydrocephalus. neurosurgery at [place] was called in ER, No transfer to high level of care or even repeat of CT of head needed. but pt present abnormalities of gait and mobility, we will continue neuro check, repeat of CT, continue PT (2)abnormalities of gait and mobility PT report he present abnormalities of gait and mobility, recommend d/c to SNF. CT did reveal a small subarachnoid hemorrhage and contusion, Ventriculomegaly which could be due to central volume loss versus normal pressure hydrocephalus in previous study on yesterday. pt is not on any antiplatelets or anticoagulation. Because he present abnormalities of gait and mobility, we will repeat CT of head. consult with social and political studies professor for disposition, or pt may need high level of care if small subarachnoid hemorrhage is worsening. (3) Cerebral contusion Conclusion/Plan: This was evident on CT with concern for a small subarachnoid hemorrhage after she had fall. This was reviewed by the emergency department physician with neurosurgery at [place] who felt that this would not explain her presentation and that there was no need for transfer. They also felt that repeating a CT would not be warranted. pt is not on any antiplatelets or anticoagulation. we will repeat a CT. Then we will discuss the care plan with pt, and pt's family (4) Foraminal stenosis of lumbar region Conclusion/Plan: She was seen in the emergency department yesterday for this and prescribed prednisone. L4-5 show Moderate to severe loss of disc. She was asked to follow- up with her spine surgeon at [facility]. She will need outpatient follow-up with her spine surgeon once discharged. pt has normal urination pattern per nurse report. (5) UTI Conclusion/Plan: Her urinalysis yesterday did reveal bacteriuria and trace leukocyte Estrace, pt had AMS, and elevated WBC, UA culture show positive for strepococcus. We will treat her with Rocephin, pt may continue finish patient home keflex after DC (6) Hypothyroidism Conclusion/Plan: Her TSH is within normal limits. We will continue her home Synthroid. - Current Meds Current Meds: Current Medications Generic Name Dose Route Start Last Admin Trade Name Deshawn PRN Reason Stop Dose Admin Acetaminophen 650 mg 12/23/20 11:10 12/23/20 21:58 Acetaminophen 325 Mg Tablet PO 650 mg Q4HR PRN Administration Pain 1 to 4 Ceftriaxone Sodium 1 gm/ 100 mls @ 200 mls/hr 12/24/20 09:00 12/24/20 10:28 Sodium Chloride IV Infused DAILY TARYN Infusion Levothyroxine Sodium 75 mcg 12/24/20 08:00 12/24/20 09:52 Levothyroxine 75 Mcg Tablet PO 75 mcg QDAC TARYN Administration Metoprolol Tartrate 25 mg 12/24/20 09:19 12/24/20 09:56 Metoprolol Tartrate 25 Mg Tablet PO 25 mg BID TARYN Administration Sodium Chloride 10 ml 12/23/20 11:10 12/24/20 10:28 Sodium Chloride Flush 0.9% 10 Ml Syringe IVP 10 ml PRN PRN Administration NEEDED PER PROVIDER ORDERS Sodium Chloride 10 ml 12/23/20 17:00 12/24/20 10:02 Sodium Chloride Flush 0.9% 10 Ml Syringe IVP 10 ml 0100,0900,1700 TARYN Administration - Lab Result Fish Bone Diagrams: 12/24/20 05:14 12/24/20 05:14 - Additional Planning My Orders: My Active Orders 12/24/20 Evaluate and Treat PT [PT] Routine 12/24/20 08:00 Levothyroxine [Synthroid] 75 mcg PO QDAC 12/24/20 09:00 cefTRIAXone [Rocephin] 1 gm Sodium Chloride 0.9% Minibag [Normal Saline 0.9% Minibag] 100 ml IV DAILY 12/24/20 09:19 Metoprolol Tartrate [Lopressor] 25 mg PO BID 12/24/20 11:53 HEAD WO [CT] Stat 12/24/20 12:00 amLODIPine [Norvasc] 5 mg PO DAILY Subjective - Subjective Patient Reports: Feeling Better Objective Vital Signs: Vital Signs - 24 hr 12/23/20 12/24/20 12/24/20 21:00 01:03 09:15 Temperature 36.3 C L 36.8 C 36.2 C L Heart Rate [ 83 69 62 Brachial] Heart Rate [ Supine] Respiratory 18 17 18 Rate Blood Pressure Blood Pressure 151/54 H 137/57 H 163/57 H [Left Brachial artery] Blood Pressure [Supine] O2 Saturation 95 95 94 12/24/20 12/24/20 12/24/20 09:56 11:00 11:45 Temperature 36.5 C Heart Rate [ 59 L Brachial] Heart Rate [ 60 Supine] Respiratory 20 Rate Blood Pressure 152/63 H Blood Pressure 133/66 H [Left Brachial artery] Blood Pressure 159/59 H [Supine] O2 Saturation 96 Oxygen O2 Source Room air I&O (Last 24 Hrs): Intake and Output Totals x24h 12/22/20 12/23/20 12/24/20 23:59 23:59 23:59 Intake Total 2965 1650 Output Total 800 2350 Balance 2165 -700 General: Alert, Oriented x3, Cooperative, No acute distress HEENT: Atraumatic, PERRLA Neck: Supple Lymphatic: no adenopathy Neuro: Alert, Non Focal, Oriented Times 3 Cardiovascular: Regular rate, Normal S1, Normal S2 Respiratory: Chest non-tender, No respiratory distress Abdomen: Normal bowel sounds, Soft, No tenderness Extremities: Normal pulses - Results Results: Laboratory Results WBC 12.6 x10^3/uL (4.8-10.8) H 12/24/20 05:14 RBC 4.26 10^6/uL (4.20-5.40) 12/24/20 05:14 Hgb 12.1 g/dL (12.0-16.0) 12/24/20 05:14 Hct 38.1 % (37.0-47.0) 12/24/20 05:14 MCV 89.4 fL (81.0-99.0) 12/24/20 05:14 MCH 28.4 pg (27.0-31.0) 12/24/20 05:14 MCHC 31.8 g/dL (32.0-36.0) L 12/24/20 05:14 RDW 14.6 % (12.0-15.0) 12/24/20 05:14 Plt Count 172 10^3/uL (130-450) 12/24/20 05:14 MPV 11.1 fL (7.9-10.8) H 12/24/20 05:14 Neut # (Auto) 9.5 10^3/uL (1.5-6.6) H 12/24/20 05:14 Lymph # (Auto) 1.7 10^3/uL (1.5-3.5) 12/24/20 05:14 Garza # (Auto) 1.3 10^3/uL (0.0-1.0) H 12/24/20 05:14 Eos # (Auto) 0.0 10^3/uL (0.0-0.7) 12/24/20 05:14 Baso # (Auto) 0.0 10^3/uL (0.0-0.1) 12/24/20 05:14 Absolute Nucleated RBC 0.00 x10^3/uL 12/24/20 05:14 Nucleated RBC % 0.0 /100WBC 12/24/20 05:14 Sodium 138 mmol/L (135-145) 12/24/20 05:14 Potassium 4.3 mmol/L (3.5-5.0) 12/24/20 05:14 Chloride 106 mmol/L (101-111) 12/24/20 05:14 Carbon Dioxide 21 mmol/L (21-32) 12/24/20 05:14 Anion Gap 11.0 (6-13) 12/24/20 05:14 BUN 34 mg/dL (6-20) H 12/24/20 05:14 Creatinine 1.1 mg/dL (0.4-1.0) H 12/24/20 05:14 Estimated GFR (MDRD) 47 (>89) L 12/24/20 05:14 Glucose 104 mg/dL (70-100) H 12/24/20 05:14 Calcium 8.6 mg/dL (8.5-10.3) 12/24/20 05:14 Magnesium 2.1 mg/dL (1.7-2.8) 12/24/20 05:14 Total Bilirubin 0.9 mg/dL (0.2-1.0) 12/23/20 09:15 AST 23 IU/L (10-42) 12/23/20 09:15 ALT 17 IU/L (10-60) 12/23/20 09:15 Alkaline Phosphatase 50 IU/L (42-121) 12/23/20 09:15 Ammonia 18.1 umol/L (7-35) 12/23/20 11:50 Total Creatine Kinase 199 IU/L (22-269) 12/24/20 05:14 Total Protein 7.1 g/dL (6.7-8.2) 12/23/20 09:15 Albumin 3.6 g/dL (3.2-5.5) 12/23/20 09:15 Globulin 3.5 g/dL (2.1-4.2) 12/23/20 09:15 Albumin/Globulin Ratio 1.0 (1.0-2.2) 12/23/20 09:15 Lipase 29 U/L (22-51) 12/23/20 09:15 TSH 1.36 uIU/mL (0.34-5.60) 12/24/20 05:14 Nasal Adenovirus (PCR) NOT DETECTED 12/23/20 11:20 Nasal B. parapertussis DNA (PCR) NOT DETECTED 12/23/20 11:20 Nasal Coronavir 229E PCR NOT DETECTED 12/23/20 11:20 Nasal Coronavir HKU1 PCR NOT DETECTED 12/23/20 11:20 Nasal Coronavir NL63 PCR NOT DETECTED 12/23/20 11:20 Nasal Coronavir OC43 PCR NOT DETECTED 12/23/20 11:20 Nasal Enterovir/Rhinovir PCR NOT DETECTED 12/23/20 11:20 Nasal Influenza B PCR NOT DETECTED 12/23/20 11:20 Nasal Influenza A PCR NOT DETECTED 12/23/20 11:20 Nasal Parainfluen 1 PCR NOT DETECTED 12/23/20 11:20 Nasal Parainfluen 2 PCR NOT DETECTED 12/23/20 11:20 Nasal Parainfluen 3 PCR NOT DETECTED 12/23/20 11:20 Nasal Parainfluen 4 PCR NOT DETECTED 12/23/20 11:20 Nasal RSV (PCR) NOT DETECTED 12/23/20 11:20 Nasal B.pertussis DNA PCR NOT DETECTED 12/23/20 11:20 Nasal C.pneumoniae (PCR) NOT DETECTED 12/23/20 11:20 Valerio Human Metapneumo PCR NOT DETECTED 12/23/20 11:20 Nasal M.pneumoniae (PCR) NOT DETECTED 12/23/20 11:20 Nasal SARS-CoV-2 (PCR) NOT DETECTED 12/23/20 11:20 - Procedures Procedures: Procedures COLONOSCOPY (03/10/13) INSERTION OF INTRAMED FIX INTO L UP FEMUR, PERC APPROACH (11/22/15) TRANSFUSE NONAUT RED BLOOD CELLS IN PERIPH VEIN, PERC (11/22/15) ABX Reporting Has patient been on IV antibiotics over the past 48 hours?: Yes Current Medications - Current Medications Current Medications: Active Medications Acetaminophen (Acetaminophen 325 Mg Tablet) 650 mg PO Q4HR PRN PRN Reason: Pain 1 to 4 Last Admin: 12/23/20 21:58 Dose: 650 mg Documented by: Amlodipine Besylate (Amlodipine 5 Mg Tablet) 5 mg PO DAILY [facility] Ceftriaxone Sodium 1 gm/ (Sodium Chloride) 100 mls @ 200 mls/hr IV DAILY [facility] Last Infusion: 12/24/20 10:28 Dose: Infused Documented by: Levothyroxine Sodium (Levothyroxine 75 Mcg Tablet) 75 mcg PO QDAC [facility] Last Admin: 12/24/20 09:52 Dose: 75 mcg Documented by: Metoprolol Tartrate (Metoprolol Tartrate 25 Mg Tablet) 25 mg PO BID [facility] Last Admin: 12/24/20 09:56 Dose: 25 mg Documented by: Ondansetron HCl (Ondansetron 4 Mg/2 Ml Vial) 4 mg IVP Q6HR PRN PRN Reason: Nausea / Vomiting Sodium Chloride (Sodium Chloride Flush 0.9% 10 Ml Syringe) 10 ml IVP PRN PRN PRN Reason: NEEDED PER PROVIDER ORDERS Last Admin: 12/24/20 10:28 Dose: 10 ml Documented by: Sodium Chloride (Sodium Chloride Flush 0.9% 10 Ml Syringe) 10 ml IVP 0100,0900,1700 [facility] Last Admin: 12/24/20 10:02 Dose: 10 ml Documented by: Levothyroxine Sodium [Synthroid] 75 mcg PO QDAC 03/09/13 Calcium Carbonate 1,250 mg PO DAILY 11/26/15 Cholecalciferol (Vitamin D3) [D--Juliana] 1,200 units PO DAILY 11/26/15 Lovastatin 40 mg PO QPM 12/22/20 Metoprolol Tartrate [Lopressor] 25 mg PO BID 12/22/20 Omeprazole [PriLOSEC] 20 mg PO DAILY 12/22/20
--- NOTE | 2020-12-24 16:48 | CT Report ---
PROCEDURE: HEAD WO INDICATIONS: worsening balance TECHNIQUE: Noncontrast 4.5 mm thick angled axial sections acquired from the foramen magnum to the vertex. For r adiation dose reduction, the following was used: automated exposure control, adjustment of mA and/or kV according to patient size. COMPARISON: 12/23/2020 FINDINGS: Cerebrum, Cerebellum and Brainstem: There is now focal hypoattenuation, sulcal effacement and blurrin g of the crespo-white junction involving the right middle temporal gyrus posteriorly extending into the parietal angular gyrus. Subarachnoid hemorrhage has resolved. No evidence of parenchymal hemorrhage. Additional hypoattenuation noted in the right caudate and lentiform nucleus. No mass effect or midli ne shift. Moderate cerebral and cerebellar underlying atrophy as well as moderate multifocal hypoattenuation i n the deep and subcortical white matter present. Basal cisterns and foramen magnum are clear. Ventricles: The ventricles are slightly out of proportion to sulcal widening. Skull Base: The bony sella, pituitary gland and infundibulum are unremarkable. Clivus and craniover tebral relationships are appropriate. Visualized portions of external auditory canals and tympanic c avities are within normal limits. Calvarium and Scalp: No scalp soft tissue swelling. The underlying calvarium is intact without skul l fracture or lytic lesion. Paranasal Sinuses: Unremarkable as visualized. No mucosal thickening or retention cyst noted. Mastoids: Unremarkable as visualized. No mastoid effusion present. Other: Atherosclerotic calcification in the cavernous portions of the distal internal carotid arteri es are noted. Bilateral intraocular lens replacements noted. IMPRESSION: 1. Subacute right MCA infarct involves the right temporoparietal cortex and right basal ganglia. No e vidence of hemorrhagic conversion or midline shift. 2. Atrophy and multifocal white matter chronic ischemic change. 3. Stable ventriculomegaly. Consider normal pressure hydrocephalus versus central atrophy. Reviewed by: Dat Jimenez MD on 12/24/2020 3:46 PM AKDT Approved by: Dat Jimenez MD on 12/24/2020 3:46 PM AKDT Station ID: [id number]
[2020-12-24] MEDS ORDERED: SODIUM CHLORIDE 0.9% 1,000 ML IV SCH (18:00)
[2020-12-24] MEDS ORDERED: IOVERSOL 320 100 ML VIAL IVP ONE ×2 (18:29→20:08)
--- NOTE | 2020-12-24 19:54 | CT Report ---
PROCEDURE: ANGIO HEAD W/WO INDICATIONS: stroke CONTRAST: IV CONTRAST: Optiray 320 ml: 80 PO CONTRAST: *NO PO CONTRAST TECHNIQUE: Precontrast 4.5 mm thick angled axial sections acquired from the foramen magnum to the vertex. Afte r the administration of intravenous contrast, 1 mm thick sections acquired through the [place] of Will is. Postcontrast 4.5 mm thick sections then re-acquired from the foramen magnum to the vertex. 3-di mensional srvarud-eqdurdocl-vrcuelphlr (MIP) and/or volume rendering reformats were acquired of the c entral intracranial vasculature. For radiation dose reduction, the following was used: automated ex posure control, adjustment of mA and/or kV according to patient size. COMPARISON: Noncontrast CT December 24, 2020 FINDINGS: Image quality: Excellent. Anterior circulation: There is complete occlusion of the right M1 MCA with minimal collateral fillin g of the distal branches. Left MCA unremarkable. No evidence of aneurysm. Intracranial internal carot id arteries are normal in size and flow. The flow within the paired anterior cerebral arteries is no rmal and symmetric. The flow within the middle cerebral arteries is normal and symmetric. The anter ior communicating artery is seen. No aneurysms are seen. Posterior circulation: Visualized portions of the vertebral arteries demonstrate normal caliber, and join to form a normal appearing basilar artery. Flow within the posterior cerebral arteries is norm al and symmetric. No aneurysms are seen. CSF spaces: Ventricles are normal in size and shape. Basal cisterns are patent. No extra-axial flu id collections. Brain: There is evolving hypodensity in the right MCA territory including the basal ganglia decreasin g seen sulcal effacement. No current midline shift. Mild enhancement along the right posterior pariet al cortex may reflect luxury perfusion. Early hemorrhagic conversion would be difficult to entirely e xclude. Skull and face: Calvarium and facial bones appear intact, without suspicious lesions. Sinuses: Visualized sinuses and mastoids are clear. IMPRESSION: 1. Right M1 MCA occlusion with collateral filling of the distal vasculature. 2. Enlarging right MCA subacute infarct with sulcal effacement and edema involving the right temporop arietal cortex and right basal ganglia. No current midline shift. 3. Enhancement along the posterior parietal cortex may reflect luxury reperfusion. Early hemorrhagic conversion would be a less likely differential. Consider short-term 3-6 hour interval noncontrast fol low-up Critical results were discussed with Dr. Valladares at 6:45 PM [place] time 12/24/2020 Reviewed by: Dat Jimenez MD on 12/24/2020 6:52 PM AKIHSAN Approved by: Dat Jimenez MD on 12/24/2020 6:52 PM AKIHSAN Station ID: [id number]
--- NOTE | 2020-12-24 20:00 | CT Report ---
PROCEDURE: ANGIO NECK W INDICATIONS: stroke CONTRAST: IV CONTRAST: Optiray 320 ml: 80 PO CONTRAST: *NO PO CONTRAST TECHNIQUE: After the administration of intravenous contrast, 1.5 mm axial sections acquired from the aortic arch to the [place] of Reyes. Coronal 3-D maximum intensity projection (MIP) and/or volume rendering ref ormats were then performed. For radiation dose reduction, the following was used: automated exposur e control, adjustment of mA and/or kV according to patient size. COMPARISON: None. FINDINGS: Image quality: Excellent. Carotid system: The great vessels demonstrate a conventional anatomy as they arise from the aortic [facility]. The origins of the common carotid arteries appear patent. The common carotid arteries demonstr ate normal calibers and courses. The bifurcation regions appear normal bilaterally. Calcified plaque in both proximal internal carotid arteries noted without hemodynamically significant stenosis utiliz ing NASCET criteria. Posterior circulation: The origins of the vertebral arteries appear patent. The more superior porti ons of the vertebral arteries demonstrate normal course and caliber. They join to form a normal appe aring basilar artery. Soft tissues: Visualized neck soft tissues demonstrate no suspicious abnormalities. The thyroid is normal in size and there are no incidental findings. Esophagus is dilated and thickened incidentally. Bones: Multilevel degenerative changes noted in the cervical spine Septal thickening and chronic interstitial changes noted in both lung apices. IMPRESSION: Atherosclerotic plaque without hemodynamically significant stenosis in the neck. Degenerative cervical spine The estimate of stenosis included in the report of the imaging study was calculated using the NASCET method Reviewed by: Dat Jimenez MD on 12/24/2020 6:59 PM AKDT Approved by: Dat Jimenez MD on 12/24/2020 6:59 PM AKDT Station ID: [id number]
[2020-12-24] MEDS: CLOPIDOGREL 75 MG TABLET PO SCH (20:03)
[2020-12-24] MEDS: ATORVASTATIN 40 MG TABLET PO SCH (21:11)
[2020-12-25] MEDS: SODIUM CHLORIDE FLUSH 0.9% 10 ML SYRINGE IVP SCH ×3 (05:50→17:04)
[2020-12-25 05:53] LABS: BASOPHILS # (AUTO) 0.1 10^3/uL (0.0-0.1); BASOPHILS % (AUTO) 0.8 %; EOSINOPHILS # (AUTO) 0.2 10^3/uL (0.0-0.7); EOSINOPHILS % (AUTO) 1.8 %; HGB - HEMOGLOBIN 12.6 g/dL (12.0-16.0); LYMPHOCYTES # (AUTO) 1.8 10^3/uL (1.5-3.5); LYMPHOCYTES % (AUTO) 20.2 %; MEAN CORPUSCULAR HEMOGLOBIN 28.5 pg (27.0-31.0); MEAN CORPUSCULAR HGB CONC 32.3 g/dL (32.0-36.0); MEAN CORPUSCULAR VOLUME 88.2 fL (81.0-99.0); MEAN PLATELET VOLUME 10.9 fL (7.9-10.8); MONOCYTES # (AUTO) 1.2 10^3/uL (0.0-1.0); MONOCYTES % (AUTO) 13.6 %; NEUTROPHILS # (AUTO) 5.6 10^3/uL (1.5-6.6); NEUTROPHILS % (AUTO) 63.4 %; PLT - PLATELET COUNT 228 10^3/uL (130-450); RED BLOOD COUNT 4.42 10^6/uL (4.20-5.40); RED CELL DISTRIBUTION WIDTH 14.6 % (12.0-15.0); WHITE BLOOD COUNT 8.8 x10^3/uL (4.8-10.8)
[2020-12-25 06:00] LABS: CALCIUM 8.3 mg/dL (8.5-10.3); CREATININE 1.2 mg/dL (0.4-1.0); MAGNESIUM 2.1 mg/dL (1.7-2.8); POTASSIUM 3.5 mmol/L (3.5-5.0)
[2020-12-25 06:13] LABS: CHOL/HDL RATIO 3.8 (<4.4); CHOLESTEROL 227 mg/dL; HDL CHOLESTEROL 59 mg/dL; LDL CHOLESTEROL,CALCULATED 136 mg/dL; LDL/HDL RATIO 2.3 (<4.4); TRIGLYCERIDES 159 mg/dL; VLDL CHOLESTEROL 32 mg/dL
[2020-12-25] MEDS: LEVOTHYROXINE 75 MCG TABLET PO SCH (06:45)
--- NOTE | 2020-12-25 06:51 | PROVIDER PROGRESS NOTE ---
Twine Reeling Machine Operator Note - Twine Reeling Machine Operator Note Twine Reeling Machine Operator Note: Received phone call from radiologist regarding CT angiogram of head showing total occlusion of right MCA. Contacted stroke neurologist on-call at [facility] who was kind enough to discuss patient's case with me. After waiting several hours for images to be pushed to the PACS system, it was still not successful so we discussed the case without his benefit of reviewing the images. His recommendation was to keep patient in current hospital with follow- up imaging such as the already ordered MRI the following day. Pending the results of the MRI, unless there is significant cerebral edema, most likely there would not be an indication for transfer however there was concern that this may evolve to a significant stroke and may require ancillary services. His recommendation is to continue to seek evidence of cryptogenic atrial fibrillation as this is the most likely culprit. If bubble study on echocardiogram does show patent foramen ovale, he recommends a lower extremity Doppler to rule out DVT. And he also recommends frequent evaluation of swallo wing capacity with a swallow study.
[2020-12-25] MEDS: cefTRIAXone 1 GM in SODIUM CHLORIDE 0.9% MINIBAG 100 ML IV SCH (07:57)
[2020-12-25] MEDS: CLOPIDOGREL 75 MG TABLET PO SCH (08:24)
[2020-12-25] MEDS: METOPROLOL TARTRATE 25 MG TABLET PO SCH ×2 (08:24→21:02)
--- NOTE | 2020-12-25 11:55 | PROVIDER PROGRESS NOTE ---
Assessment/Plan - Problem List (1) Stroke Assessment/Plan: 12/[address] and CTA of head reveals right large MCA subacute infarct, no current midline shift. Nocturalist hospitalist discussed the CTA of head result about occlusion of MCA with neurologist in [place], meanwhile MRI and ECHO is pending, neurologist's recommendation was to keep patient in current hospital with follow-up imaging such as the already ordered MRI. Pending the results of the MRI, unless there is significant cerebral edema, most likely there would not be an indication for transfer. pt may check with US for DVT in leg if pt has foramen ovale in ECHO study. Clinically, pt is alert and oriented. pt has clear speech, pt has no issue for swallowing as far. left side of upper and lower extremities did present weakness than the right. order Plavix, pt is allergy to Aspirin, order Lipitor, order lipid panel order PT/OT, EKG, and tele monitor, continue vital and lab closely monitor pt. (2) Altered mental status 12/25 alert and oriented as yesterday. pt has clear speech pt is alert and oriented on today as her baseline. CT on yesterday did reveal a small subarachnoid hemorrhage and contusion, Ventriculomegaly which could be due to central volume loss versus normal pressure hydrocephalus. neurosurgery at [place] was called in ER, No transfer to high level of care or even repeat of CT of head needed. but pt present abnormalities of gait and mobility, we will continue neuro check, repeat of CT, continue PT (3)abnormalities of gait and mobility 12/25 pt has stroke now, We will continue PT and OT, Consult with social work for discharge planning PT report he present abnormalities of gait and mobility, recommend d/c to SNF. CT did reveal a small subarachnoid hemorrhage and contusion, Ventriculomegaly which could be due to central volume loss versus normal pressure hydrocephalus in previous study on yesterday. pt is not on any antiplatelets or anticoagulat ion. Because he present abnormalities of gait and mobility, we will repeat CT of head. consult with social group worker for disposition, or pt may need high level of care if small subarachnoid hemorrhage is worsening. (4) Cerebral contusion Conclusion/Plan: repeat CT of head show no evidence of hemorrhagic, MRI of brain is pending, we will continue to treat pt's stroke, and continue PT/OT for pt (5) Foraminal stenosis of lumbar region Conclusion/Plan: She was seen in the emergency department yesterday for this and prescribed prednisone. L4-5 show Moderate to severe loss of disc. She was asked to follow- up with her spine surgeon at [facility]. She will need outpatient follow-up with her spine surgeon once discharged. pt has normal urination pattern per nurse report. (6) UTI Conclusion/Plan: Her urinalysis yesterday did reveal bacteriuria and trace leukocyte Estrace, pt had AMS, and elevated WBC, UA culture show positive for strepococcus. We will treat her with Rocephin, pt may continue finish patient home keflex after DC (7) Hypothyroidism Conclusion/Plan: Her TSH is within normal limits. We will continue her home Synthroid. (2) Altered mental status Qualifiers: Altered mental status type: unspecified Qualified Code(s): R41.82 - Altered mental status, unspecified - Current Meds Current Meds: Current Medications Generic Name Dose Route Start Last Admin Trade Name Freq PRN Reason Stop Dose Admin Acetaminophen 650 mg 12/23/20 11:10 12/24/20 16:00 Acetaminophen 325 Mg Tablet PO 650 mg Q4HR PRN Administration Pain 1 to 4 Atorvastatin Calcium 80 mg 12/24/20 21:00 12/24/20 21:11 Atorvastatin 40 Mg Tablet PO 80 mg QPM TARYN Administration Clopidogrel Bisulfate 75 mg 12/24/20 17:55 12/25/20 08:24 Clopidogrel 75 Mg Tablet PO 75 mg DAILY TARYN Administration Ceftriaxone Sodium 1 gm/ 100 mls @ 200 mls/hr 12/24/20 09:00 12/25/20 08:27 Sodium Chloride IV Infused DAILY TARYN Infusion Levothyroxine Sodium 75 mcg 12/24/20 08:00 12/25/20 06:45 Levothyroxine 75 Mcg Tablet PO 75 mcg QDAC TARYN Administration Metoprolol Tartrate 25 mg 12/24/20 09:19 12/25/20 08:24 Metoprolol Tartrate 25 Mg Tablet PO 25 mg BID TARYN Administration Sodium Chloride 10 ml 12/23/20 11:10 12/24/20 10:28 Sodium Chloride Flush 0.9% 10 Ml Syringe IVP 10 ml PRN PRN Administration NEEDED PER PROVIDER ORDERS Sodium Chloride 10 ml 12/23/20 17:00 12/25/20 08:27 Sodium Chloride Flush 0.9% 10 Ml Syringe IVP 10 ml 0100,0900,1700 [facility] Administration - Lab Result Fish Bone Diagrams: 12/25/20 04:35 12/25/20 04:35 - Additional Planning My Orders: My Active Orders 12/24/20 16:05 Neuro Check [RC] Q4H 12/24/20 17:55 Clopidogrel [Plavix] 75 mg PO DAILY 12/24/20 17:56 Echo Transthoracic Complete [ECHO] Routine 12/24/20 21:00 Atorvastatin [Lipitor] 80 mg PO QPM 12/25/20 08:43 BRAIN WO [MRI] Stat 12/25/20 10:44 Telemetry- [RC] Q4HR 12/25/20 11:30 BRAIN WO [MRI] Stat Subjective - Subjective Patient Reports: Feeling Better Objective Vital Signs: Vital Signs - 24 hr 12/24/20 12/24/20 12/25/20 17:00 21:00 01:00 Temperature 37.1 C 37.0 C 36.8 C Heart Rate [ 57 L 61 62 Brachial] Respiratory 18 18 18 Rate Blood Pressure Blood Pressure 165/61 H 151/63 H 170/67 H [Left Brachial artery] O2 Saturation 96 95 98 12/25/20 12/25/20 12/25/20 05:00 08:12 08:24 Temperature 36.7 C 36.7 C Heart Rate [ 61 63 Brachial] Respiratory 16 14 Rate Blood Pressure 173/61 H Blood Pressure 169/55 H 173/61 H [Left Brachial artery] O2 Saturation 98 96 Oxygen O2 Source Room air I&O (Last 24 Hrs): Intake and Output Totals x24h 12/23/20 12/24/20 12/25/20 23:59 23:59 23:59 Intake Total 2965 2150 1300 Output Total 800 3500 1900 Balance 2165 -1350 -600 General: Alert, Oriented x3, Cooperative, No acute distress HEENT: Atraumatic Neck: Supple Lymphatic: no adenopathy Neuro: Alert, Focal Deficits, Oriented Times 3, Other (weakness on right upper and lower extremities) Cardiovascular: Regular rate, Normal S1, Normal S2 Respiratory: Chest non-tender, No respiratory distress Abdomen: Normal bowel sounds, Soft, No tenderness Extremities: Normal pulses - Results Results: Laboratory Results WBC 8.8 x10^3/uL (4.8-10.8) 12/25/20 04:35 RBC 4.42 10^6/uL (4.20-5.40) 12/25/20 04:35 Hgb 12.6 g/dL (12.0-16.0) 12/25/20 04:35 Hct 39.0 % (37.0-47.0) 12/25/20 04:35 MCV 88.2 fL (81.0-99.0) 12/25/20 04:35 MCH 28.5 pg (27.0-31.0) 12/25/20 04:35 MCHC 32.3 g/dL (32.0-36.0) 12/25/20 04:35 RDW 14.6 % (12.0-15.0) 12/25/20 04:35 Plt Count 228 10^3/uL (130-450) 12/25/20 04:35 MPV 10.9 fL (7.9-10.8) H 12/25/20 04:35 Neut # (Auto) 5.6 10^3/uL (1.5-6.6) 12/25/20 04:35 Lymph # (Auto) 1.8 10^3/uL (1.5-3.5) 12/25/20 04:35 Parmer # (Auto) 1.2 10^3/uL (0.0-1.0) H 12/25/20 04:35 Eos # (Auto) 0.2 10^3/uL (0.0-0.7) 12/25/20 04:35 Baso # (Auto) 0.1 10^3/uL (0.0-0.1) 12/25/20 04:35 Absolute Nucleated RBC 0.00 x10^3/uL 12/25/20 04:35 Nucleated RBC % 0.0 /100WBC 12/25/20 04:35 Sodium 137 mmol/L (135-145) 12/25/20 04:35 Potassium 3.5 mmol/L (3.5-5.0) 12/25/20 04:35 Chloride 105 mmol/L (101-111) 12/25/20 04:35 Carbon Dioxide 23 mmol/L (21-32) 12/25/20 04:35 Anion Gap 9.0 (6-13) 12/25/20 04:35 BUN 28 mg/dL (6-20) H 12/25/20 04:35 Creatinine 1.2 mg/dL (0.4-1.0) H 12/25/20 04:35 Estimated GFR (MDRD) 43 (>89) L 12/25/20 04:35 Glucose 99 mg/dL (70-100) 12/25/20 04:35 Calcium 8.3 mg/dL (8.5-10.3) L 12/25/20 04:35 Magnesium 2.1 mg/dL (1.7-2.8) 12/25/20 04:35 Total Bilirubin 0.9 mg/dL (0.2-1.0) 12/23/20 09:15 AST 23 IU/L (10-42) 12/23/20 09:15 ALT 17 IU/L (10-60) 12/23/20 09:15 Alkaline Phosphatase 50 IU/L (42-121) 12/23/20 09:15 Ammonia 18.1 umol/L (7-35) 12/23/20 11:50 Total Creatine Kinase 199 IU/L (22-269) 12/24/20 05:14 Total Protein 7.1 g/dL (6.7-8.2) 12/23/20 09:15 Albumin 3.6 g/dL (3.2-5.5) 12/23/20 09:15 Globulin 3.5 g/dL (2.1-4.2) 12/23/20 09:15 Albumin/Globulin Ratio 1.0 (1.0-2.2) 12/23/20 09:15 Triglycerides 159 mg/dL (-149) H 12/25/20 04:35 Cholesterol 227 mg/dL (-199) H 12/25/20 04:35 LDL Cholesterol, Calc 136 mg/dL (-129) H 12/25/20 04:35 VLDL Cholesterol 32 mg/dL 12/25/20 04:35 HDL Cholesterol 59 mg/dL (60-) L 12/25/20 04:35 LDL/HDL Ratio 2.3 (<4.4) 12/25/20 04:35 Cholesterol/HDL Ratio 3.8 (<4.4) 12/25/20 04:35 Lipase 29 U/L (22-51) 12/23/20 09:15 TSH 1.36 uIU/mL (0.34-5.60) 12/24/20 05:14 Nasal Adenovirus (PCR) NOT DETECTED 12/23/20 11:20 Nasal B. parapertussis DNA (PCR) NOT DETECTED 12/23/20 11:20 Nasal Coronavir 229E PCR NOT DETECTED 12/23/20 11:20 Nasal Coronavir HKU1 PCR NOT DETECTED 12/23/20 11:20 Nasal Coronavir NL63 PCR NOT DETECTED 12/23/20 11:20 Nasal Coronavir OC43 PCR NOT DETECTED 12/23/20 11:20 Nasal Enterovir/Rhinovir PCR NOT DETECTED 12/23/20 11:20 Nasal Influenza B PCR NOT DETECTED 12/23/20 11:20 Nasal Influenza A PCR NOT DETECTED 12/23/20 11:20 Nasal Parainfluen 1 PCR NOT DETECTED 12/23/20 11:20 Nasal Parainfluen 2 PCR NOT DETECTED 12/23/20 11:20 Nasal Parainfluen 3 PCR NOT DETECTED 12/23/20 11:20 Nasal Parainfluen 4 PCR NOT DETECTED 12/23/20 11:20 Nasal RSV (PCR) NOT DETECTED 12/23/20 11:20 Nasal B.pertussis DNA PCR NOT DETECTED 12/23/20 11:20 Nasal C.pneumoniae (PCR) NOT DETECTED 12/23/20 11:20 Valerio Human Metapneumo PCR NOT DETECTED 12/23/20 11:20 Nasal M.pneumoniae (PCR) NOT DETECTED 12/23/20 11:20 Nasal SARS-CoV-2 (PCR) NOT DETECTED 12/23/20 11:20 - Procedures Procedures: Procedures COLONOSCOPY (03/10/13) INSERTION OF INTRAMED FIX INTO L UP FEMUR, PERC APPROACH (11/22/15) TRANSFUSE NONAUT RED BLOOD CELLS IN PERIPH VEIN, PERC (11/22/15) ABX Reporting Has patient been on IV antibiotics over the past 48 hours?: No Current Medications - Current Medications Current Medications: Active Medications Acetaminophen (Acetaminophen 325 Mg Tablet) 650 mg PO Q4HR PRN PRN Reason: Pain 1 to 4 Last Admin: 12/24/20 16:00 Dose: 650 mg Documented by: Atorvastatin Calcium (Atorvastatin 40 Mg Tablet) 80 mg PO QPM TARYN Last Admin: 12/24/20 21:11 Dose: 80 mg Documented by: Clopidogrel Bisulfate (Clopidogrel 75 Mg Tablet) 75 mg PO DAILY [facility] Last Admin: 12/25/20 08:24 Dose: 75 mg Documented by: Ceftriaxone Sodium 1 gm/ (Sodium Chloride) 100 mls @ 200 mls/hr IV DAILY [facility] Last Infusion: 12/25/20 08:27 Dose: Infused Documented by: Levothyroxine Sodium (Levothyroxine 75 Mcg Tablet) 75 mcg PO QDAC [facility] Last Admin: 12/25/20 06:45 Dose: 75 mcg Documented by: Metoprolol Tartrate (Metoprolol Tartrate 25 Mg Tablet) 25 mg PO BID [facility] Last Admin: 12/25/20 08:24 Dose: 25 mg Documented by: Ondansetron HCl (Ondansetron 4 Mg/2 Ml Vial) 4 mg IVP Q6HR PRN PRN Reason: Nausea / Vomiting Sodium Chloride (Sodium Chloride Flush 0.9% 10 Ml Syringe) 10 ml IVP PRN PRN PRN Reason: NEEDED PER PROVIDER ORDERS Last Admin: 12/24/20 10:28 Dose: 10 ml Documented by: Sodium Chloride (Sodium Chloride Flush 0.9% 10 Ml Syringe) 10 ml IVP 0100,0900,1700 [facility] Last Admin: 12/25/20 08:27 Dose: 10 ml Documented by: Levothyroxine Sodium [Synthroid] 75 mcg PO QDAC 03/09/13 Calcium Carbonate 1,250 mg PO DAILY 11/26/15 Cholecalciferol (Vitamin D3) [D--Juliana] 1,200 units PO DAILY 11/26/15 Lovastatin 40 mg PO QPM 12/22/20 Metoprolol Tartrate [Lopressor] 25 mg PO BID 12/22/20 Omeprazole [PriLOSEC] 20 mg PO DAILY 12/22/20
--- NOTE | 2020-12-25 12:59 | MRI Report ---
PROCEDURE: Brain W/O INDICATIONS: stroke TECHNIQUE: Noncontrast axial T1 spin echo, axial T2 fast spin echo, sagittal and axial FLAIR, coronal T2 fast sp in echo, axial gradient echo, axial diffusion and ADC through the brain. COMPARISON: CTA head and neck dated 12/24/2020. FINDINGS: Image quality: Excellent. CSF Spaces: Basal cisterns are patent. No extra-axial fluid collections. Ventricles are normal in size and shape. Brain: No intracranial masses or hemorrhage. Moderate-sized acute right MCA distribution infarct inv olving the right basal ganglia and right temporal lobe, with associated restricted diffusion and cyto toxic edema with mild mass effect on the frontal horn of the right lateral ventricle without shift. D iminished signal noted in the right basal ganglia on the GRE sequence is consistent with petechial he morrhagic transformation. Additionally, there is a tiny acute infarct with restricted water diffusion in the left cerebellum with associated cytotoxic edema. Age-related volume loss and mild small vesse l ischemic change. Normal intravascular flow voids are present. Skull and face: Calvarium has normal marrow signal. Orbits appear normal. Sinuses: Sinuses and mastoids are clear. IMPRESSION: 1. Moderate-sized right MCA distribution acute infarct involving the right temporal cortex and right basal ganglia with early cytotoxic edema and mild mass effect. Likely associated minimal petechial he morrhage. 2. Tiny acute left cerebellar infarct. Consider possible cardiac source of emboli. Reviewed by: Teto Mcpherson MD on 12/25/2020 12:57 PM PDT Approved by: Teto Mcpherson MD on 12/25/2020 12:57 PM PDT Station ID: [id number]
[2020-12-25] MEDS: ATORVASTATIN 40 MG TABLET PO SCH (21:07)
[2020-12-26 01:13] VITALS: BP 165/91
--- NOTE | 2020-12-26 07:45 | DISCHARGE SUMMARY ---
Discharge Summary Admit Date: 12/23/20 Discharge Date: 12/25/20 Discharging Provider: Dr. Valladares Condition at Discharge: Good Discharge Disposition: 02 Transfer Acute Care Hosp - DIAGNOSES Discharge Diagnoses with Status of Each Condition: (1) Stroke pt had fall at home. initially at the admission, CT of head reveals a trace right parietaloccipital subarachnoid hemorrhage and small right occipital hemorrhagic contusion. Neurosurgeon in [place] was consulted. Patient was recommended that Patient was not needed to be transferred for high level, keep pt be watched in ICU overnight, pt may not need another image study if she is stable. In next day, PT evaluated pt, pt presented very unsteady balance, can not walk. Repeat CT show right large MCA subacute infarct, no Evidence of hemorrhage conversion or midline shift. CTA of head reveal MCA occlusion. We called neurologist in [place], neurologist's recommendation was to keep patient in current hospital and treatment with follow-up imaging such as the already ordered MRI. Pending the results of the MRI, unless there is significant cerebral edema, most likely there would not be an indication for transfer. According to above image study and recommendation, pt was treated with Plavix (pt is allergy to Aspirin) and Lipitor, continue consulted with PT/OT. MRI reveals Moderate sized right MCA distribution acute infarct involving the right temporal cortex and right basal ganglia with early cytotoxic edema and mild mass-effect, tiny acute left cerebellar infarct. We consulted neurologist in [place], He recommend patient should be transfer to higher level of care based on patient complicated, severe stroke, has early mass-effect. [employer] Wheel [employer]er in [place] talked with our silk screen printer machine and accepted pt for high level of care in [place]. appreciate both neurologist and psychiatric attendant continue to take care of this pt. (2) Altered mental status resolved. pt's mental status return to pt's baseline. pt has clear speech and logically conversation. (3)abnormalities of gait and mobility pt has severe Abnormalities of gait and mobility, it is likely caused her stroke, MRI show pt has tiny left cerebellar infarct. (4) Cerebral contusion shown in her CT of head. pt denies headache. continue care at [place] (5) Foraminal stenosis of lumbar region She was seen in the emergency department yesterday for this and prescribed prednisone. L4-5 show Moderate to severe loss of disc. She was asked to follow up with her spine surgeon at [facility]. She will need outpatient follow-up with her spine surgeon once discharged. pt has normal urination pattern per nurse report. (6) UTI Her urinalysis yesterday did reveal bacteriuria and trace leukocyte Estrace, and elevated WBC, UA culture show positive for strepococcus. she was treated with Rocephin in hospital (7) Hypothyroidism Her TSH is within normal limits. We will continue her home Synthroid. - HPI History of Present Illness: refer from Dr. Ewing's HPI on 12/23/20 This is a 85-year-old female with a past medical history significant for hypertension, GERD, hypothyroidism who presents today after she was found on the ground by her and there was concern for confusion at that time. The patient tells me she cannot recall what happened yesterday. She was not sure why she is on the ground. She does not believe she hit her head but she does feel like her neck is bothering her a little bit. She reports right-sided neck pain that is worse with movement. There is no pain with palpation. She denies any upper or lower extremity weakness. She states she was in the emergency department yesterday due to difficulty walking, and complaining of back pain. She was diagnosed with a urinary tract infection and discharged on Keflex. She was also given prednisone for her back pain. She states she feels better today from walking perspective. She been able to ambulate without difficulty. She normally uses a walker at baseline. She currently feels like she is at her baseline and her who is at bedside confirms this. She knows to the hospital and why she is here. She knows the year, month, and day of the week. She reports no fevers but does report occasional chills. She denies any dysuria, urgency, hematuria. The emergency department, she underwent a CT of the head which showed a trace right parietaloccipital subarachnoid hemorrhage and small right occipital hemorrhagic contusion. This finding was discussed with neurosurgery at [place] who felt that no surgical intervention was warranted and they felt that this would also not explain her confusion that was present given it is st arted tiny hemorrhage. They also do not feel that repeating imaging would be worthwhile as well given how small the hemorrhage is. Given her initial confusion, medicine was asked to place the patient in observation overnight. I did discuss goals of care with the patient and she would like to be a full code. - HOSPITAL COURSE Hospital Course: as the above described Discharge Diagnosis summary: 1, stroke. Patient was accepted by neurologist and psychiatric attendant in [place], patient was transferred for higher level care. - ALLERGIES Allergies/Adverse Reactions: Allergies Allergy/AdvReac Type Severity Reaction Status Date / Time NSAIDS (Non-Steroidal Allergy Mild Anxiety Verified 12/23/20 09:01 Anti-Inflamma ranitidine HCl * Allergy Mild unknown Verified 12/23/20 09:01 [From Zantac] sertraline HCl * Allergy Mild unknown Verified 12/23/20 09:01 [From Zoloft] oxycodone Allergy Unknown Verified 12/23/20 09:01 [id number]-[id number]-Hmy Reductase AdvReac Mild Dizziness Verified 12/23/20 09:01 Inhibitor alendronate sodium AdvReac Dizziness Verified 12/23/20 09:01 [From Fosamax] - MEDICATIONS Home Medications: Ambulatory Orders Medication Instructions Recorded Confirmed Levothyroxine Sodium [Synthroid] 75 mcg PO QDAC 03/09/13 12/23/20 Calcium Carbonate 1,250 mg PO DAILY 11/26/15 12/22/20 Cholecalciferol (Vitamin D3) 1,200 units PO DAILY 11/26/15 12/22/20 [D--Juliana] Lovastatin 40 mg PO QPM 12/22/20 12/23/20 Metoprolol Tartrate [Lopressor] 25 mg PO BID 12/22/20 12/23/20 Omeprazole [PriLOSEC] 20 mg PO DAILY 12/22/20 12/22/20 cephALEXin [Keflex] 500 mg PO Q6H #20 cap 12/22/20 predniSONE [Deltasone] 40 mg PO DAILY #10 tablet 12/22/20 - PHYSICAL EXAM AT DISCHARGE General Appearance: positive: No acute distress, Alert. negative: Lethargic Eyes Bilateral: positive: Normal inspection, No lid inflammation ENT: positive: ENT inspection nml, No signs of dehydration. negative: Purulent nasal drainage Neck: positive: Nml inspection, Trachea midline. negative: Thyromegaly, Trach eal deviation Respiratory: positive: Chest non-tender, No respiratory distress. negative: Wheezes, Rales Cardiovascular: positive: Regular rate & rhythm, No murmur. negative: Tachycardia, Bradycardia, Systolic murmur, Diastolic murmur Peripheral Pulses: positive: 2+ Abdomen: positive: Non-tender, Nml bowel sounds, No distention. negative: Tenderness Back: positive: Nml inspection Skin: positive: Color nml, Warm, Dry. negative: Cyanosis Extremities: positive: Non-tender, Nml appearance. negative: Calf tenderness Neurologic/Psychiatric: positive: Oriented x3, Mood/affect nml, Weakness, Other (left both upper and lower extremities show weakness than right side). negative: Motor nml, Facial droop, Slurred/abnml speech - LABS Result Diagrams: 12/25/20 04:35 12/25/20 04:35 - FOLLOW UP Follow Up: Transfer patient to [place] for higher level of care - TIME SPENT Time Spent in Discharge (Minutes): 30
== END 2020-12-26 01:00 | disposition short-term general hospital (02) | DRG 65 ==
LOC: EDUNIT# → ED 08:46 → ICU 11:10 → OBSVTOIN 12-24 17:55
PROVIDERS: ADMIT Internal Medicine; ATTEND Nurse Practitioner Gerontology
DX: I60.9 Nontraumatic subarachnoid hemorrhage, unspecified (principal); N30.00 Acute cystitis without hematuria; X58.XXXA Exposure to other specified factors, initial encounter; Y92.003 Bedroom of unspecified non-institutional (private) residence as the place of occurrence of the external cause; R41.82 Altered mental status, unspecified; E03.9 Hypothyroidism, unspecified; R32 Unspecified urinary incontinence; R35.1 Nocturia; M54.5 Low back pain; M54.2 Cervicalgia; I10 Essential (primary) hypertension; M48.061 Spinal stenosis, lumbar region without neurogenic claudication; Z20.822 Contact with and (suspected) exposure to COVID-19
CPT/HCPCS: 36415; 70450; 70496; 70498; 70551; 80048; 80053; 80061; 82140; 82550; 83690; 83735; 84443; 85025; 87631; 93005; 96365; 97162; 99285; A9270; J7120; Q9967; 0202U; 83721

== ENCOUNTER 2020-12-26 00:50 | Outpatient (CLI) | payer MEDICARE, OTHER | END 2020-12-26 00:51 | disposition short-term general hospital (02) | LOC: EMS 00:50 | PROVIDERS: ATTEND Nurse Practitioner Gerontology | DX: I63.9 Cerebral infarction, unspecified (principal); Z74.01 Bed confinement status | CPT/HCPCS: A0425; A0428 ==